=== PATIENT | female | born 1965 | race Caucasian/White ===

== ENCOUNTER 2020-11-22 12:11 | Inpatient (IN) ==
[2020-11-22] MEDS ORDERED: ONDANSETRON INJ 2 MG/ML 2 ML VIAL IV STA (12:32)
[2020-11-22] MEDS ORDERED: ALBUTEROL HFA 8 GM INHALER INH ONE (12:32)
[2020-11-22] MEDS ORDERED: KETOROLAC TROMETHAMINE 15 MG/ML VIAL IV STA (12:32)
[2020-11-22] MEDS ORDERED: ACETAMINOPHEN 1000 MG/100 ML IV IV STA (12:32)
--- NOTE | 2020-11-22 12:37 | Emergency Department Note ---
Impression & Plan Tachycardia, Vomiting, Diarrhea, Diffuse abdominal pain, Flu-like symptoms, Elevated liver enzymes ED Provider Note NAME: ELOISA GARRETT AGE: 55 SEX: F : 1965 ARRIVES VIA: Walk-In INFORMANT: [Patient] ED PROVIDER(S): [Francisco Hernandez MD] CHIEF COMPLAINT: Illness HISTORY OF PRESENT ILLNESS: The patient is a 55-year-old female who has had 2 days of flulike symptoms. She had a headache, stuffy nose, cough, sore throat, body aches, shortness of breath, vomiting, diarrhea, diffuse abdominal pain, issues with poor taste and smell. Patient states that she feels terrible. She has had chills and she thinks she likely had a fever. No Covid or influenza exposures. She states that she is otherwise fairly healthy. She has not been vaccinated for COVID-19. The patient states that she has vomited and had diarrhea so many times that she has lost count. She feels dehydrated. REVIEW OF SYSTEMS: See HPI for pertinent positives and negatives. A total of ten systems were reviewed and were otherwise negative. PMHx/PSHx: See Below SOCIAL HISTORY: See Below. PHYSICAL EXAM: GENERAL: Patient is in mild distress, moaning on the stretcher. HEENT: No acute trauma, normocephalic atraumatic, mucous membranes dry, moderate nasal congestion, no scleral icterus. NECK: No stridor, no adenopathy, no meningismus, trachea is midline. LUNGS: No respiratory distress, no obvious wheeze or crackle, equal breath sounds. HEART: Mildly tachycardic, regular rhythm, no murmurs. ABDOMEN: Soft, diffusely moderately tender, bowel sounds positive, no hernias, no peritonitis. EXTREMITIES: No cyanosis or edema, full range of motion of all the joints without pain or difficulty, no signs for acute trauma. NEUROLOGIC: Oriented x 3, no acute motor or sensory deficits, no focal weakness. SKIN: No rash, no jaundice, no diaphoresis. DIFFERENTIAL DIAGNOSIS: Sepsis, UTI, pneumonia, COVID-19, influenza, metabolic abnormality, electrolyte abnormalities, cardiac sources, cellulitis, UTI, bacteremia, intracerebral event, toxicologic etiology, neurologic event, as well as other pathologies. EMERGENCY DEPARTMENT COURSE/PROCEDURES: ECG: Indication was weakness and tachycardia. The ECG shows a sinus tachyca rdia with a rate of 103. The QTc is 476. There is no ST elevation, no PVCs. No old ECGs available for comparison. Continuous Cardiac Monitoring: An order was placed for continuous cardiac monitoring. The monitor shows a rate of 97 with normal sinus rhythm. Critical Care Note: I have personally spent 43 minutes of critical care time in the direct management of this patient. This includes bedside care, interpretation of diagnostic studies, and testing, discussion with consultants, patient, and family members, and other required patient management activities. This 43 minutes is in excess of all separately billable procedures. MEDICAL DECISION MAKING: There is no leukocytosis or concerning anemia. There is a normal platelet count. No coagulopathy. No kidney failure or significant electrolyte abnormality. Lactic acid level is not elevated making sepsis less likely. There is significant liver enzyme elevations with the AST at nearly 3000, the bilirubin was normal. ALT was elevated at just about 2000. Alk phos was slightly elevated. ECG showed a sinus tachycardia, no acute ischemia. Cardiac enzyme testing x1 is not consistent with acute cardiac injury. Covid testing and influenza testing returned negative. Chest film did not show pneumonia or CHF. There was no free air. Abdominal and pelvis CT did not show any bowel obstruction. No acute surgical pathology. The gallbladder was slightly distended without evidence for infection. Caldwell testing returned negative. Lipase returned negative, essentially ruling out pancreatitis. Hepatitis panel is currently pending. Alcohol level and Tylenol levels are pending--of note, the patient denies excessive alcohol use, she denies any excessive Tylenol use. On exam, the patient seemed uncomfortable. She was tachycardic. She seemed in some mild distress. She was not hypoxic. She was not febrile. Patient was aggressively managed, sepsis was a concern. She was initially placed in isolation but the isolation was then revoked once the Covid testing returned negative. She received IV saline, 1 L. She was given IV lactated Ringer's, 1 L. She received IV Toradol, IV Tylenol, albuterol via MDI, she was given IV cefepime as empiric antibiotic coverage. The patient's heart rate has improved. Subjectively, she feels minimally i mproved overall. The patient is in need of a hospital stay. She is dehydrated, she has significa nt elevation to her liver enzymes. She is still symptomatic despite treatment here in the ED. I spoke to the patient about her findings, I did speak with case management. The on-call hospitalist has been consulted. At this point, the cause for her presentation is unclear. Past Med/Surg History Medical History No significant medical problems Social History Smoking Status: Current every day smoker Feels Safe at Home: Yes Allergies Allergies Allergy/AdvReac Type Severity Reaction Status Date / Time Penicillins Allergy Intermediate HIVES Unverified 11/22/20 14:18 Home Meds Home Medications Medication Instructions Recorded Confirmed acetaminophen [Tylenol Extended 650 mg PO Q12H PRN 11/22/20 11/22/20 Release] albuterol sulfate 2 puff INHALATION UD PRN 11/22/20 11/22/20 aspirin [Aspirin Low Dose] 81 mg PO QAM 11/22/20 11/22/20 clonazepam 1 mg PO QAM 11/22/20 11/22/20 lisinopril 10 mg PO QAM 11/22/20 11/22/20 multivitamin 1 tab PO QAM 11/22/20 11/22/20 oxycodone-acetaminophen 1 tab PO TID PRN 11/22/20 11/22/20 oxymetazoline [Nasal [place] 2 spray INTRANASAL Q12H PRN 11/22/20 11/22/20 (oxymetazoline)] pantoprazole 40 mg PO QAM 11/22/20 11/22/20 Results & Data (ED) Vital Signs Vital Signs - 24 hr 11/22/20 12:15 11/22/20 13:16 11/22/20 13:17 Temperature 37.0 C Temperature Source Temporal Artery Scan Pulse Rate 123 H 94 H 107 H Pulse Rate from SpO2 Sensor 95 H 106 H Respiratory Rate 24 22 16 Respiratory Effort / Characteristics Blood Pressure 134/89 134/90 Blood Pressure Mean 104 104 Pulse Oximetry 95 97 97 Oxygen Delivery Method Room Air Sepsis Recent Fever Within 48 Hours No Sepsis New/Unexplained Change in Mental Status No Sepsis Action Taken by Nursing No Action Required 11/22/20 13:18 11/22/20 13:21 11/22/20 13:30 Temperature Temperature Source Pulse Rate 99 H Pulse Rate from SpO2 Sensor 99 H Respiratory Rate 18 19 Respiratory Effort / Characteristics Non-Labored Blood Pressure 115/83 Blood Pressure Mean 93 Pulse Oximetry 98 98 96 Oxygen Delivery Method Room Air Room Air Sepsis Recent Fever Within 48 Hours Sepsis New/Unexplained Change in Mental Status Sepsis Action Taken by Nursing 11/22/20 13:31 11/22/20 13:39 11/22/20 13:45 Temperature Temperature Source Pulse Rate 104 H 107 H Pulse Rate from SpO2 Sensor 106 H 103 H Respiratory Rate 22 18 15 Respiratory Effort / Characteristics Non-Labored Blood Pressure 121/77 Blood Pressure Mean 91 Pulse Oximetry 98 98 98 Oxygen Delivery Method Room Air Sepsis Recent Fever Within 48 Hours Sepsis New/Unexplained Change in Mental Status Sepsis Action Taken by Nursing 11/22/20 13:46 11/22/20 14:00 11/22/20 14:01 Temperature Temperature Source Pulse Rate 95 H 95 H 94 H Pulse Rate from SpO2 Sensor 95 H 96 H 93 H Respiratory Rate 18 18 18 Respiratory Effort / Characteristics Non-Labored Blood Pressure 117/75 Blood Pressure Mean 89 Pulse Oximetry 99 98 98 Oxygen Delivery Method Sepsis Recent Fever Within 48 Hours Sepsis New/Unexplained Change in Mental Status Sepsis Action Taken by Nursing 11/22/20 14:15 11/22/20 14:16 11/22/20 14:30 Temperature Temperature Source Pulse Rate 109 H 99 H 101 H Pulse Rate from SpO2 Sensor 110 H 100 H 99 H Respiratory Rate 18 18 18 Respiratory Effort / Characteristics Non-Labored Blood Pressure 119/86 116/89 Blood Pressure Mean 97 98 Pulse Oximetry 97 96 98 Oxygen Delivery Method Sepsis Recent Fever Within 48 Hours Sepsis New/Unexplained Change in Mental Status Sepsis Action Taken by Nursing 11/22/20 14:31 11/22/20 14:45 11/22/20 15:00 Temperature Temperature Source Pulse Rate 95 H 95 H 102 H Pulse Rate from SpO2 Sensor 97 H 97 H Respiratory Rate 17 20 21 Respiratory Effort / Characteristics Blood Pressure 118/89 121/94 Blood Pressure Mean 98 103 Pulse Oximetry 95 96 Oxygen Delivery Method Sepsis Recent Fever Within 48 Hours Sepsis New/Unexplained Change in Mental Status Sepsis Action Taken by Nursing 11/22/20 15:01 11/22/20 15:15 11/22/20 15:16 Temperature Temperature Source Pulse Rate 99 H 101 H 98 H Pulse Rate from SpO2 Sensor Respiratory Rate 16 19 20 Respiratory Effort / Characteristics Blood Pressure 119/83 Blood Pressure Mean 95 Pulse Oximetry Oxygen Delivery Method Sepsis Recent Fever Within 48 Hours Sepsis New/Unexplained Change in Mental Status Sepsis Action Taken by [facility] Medications Current Medication List: was personally reviewed by me Laboratory Data Attestation: I reviewed the patient's lab results. Result diagrams: 11/22/20 13:00 11/22/20 13:00 Lab Results 11/22/20 11/22/20 11/22/20 Range/Units 13:00 13:00 13:00 WBC 5.19 (4.8-10.8) K/uL RBC 4.44 (4.2-5.4) M/uL Hgb 14.8 (12.0-16.0) g/dL Hct 43.0 (37-47) % MCV 96.8 (80-100) fL MCH 33.3 (25-34) pg MCHC 34.4 (32-36) g/dL RDW Std Deviation 47.8 H (36.4-46.3) fL RDW Coeff of Isac 13.5 (11.5-14.5) % Plt Count 186 (130-400) K/uL MPV 10.1 (7.4-10.4) fL Immature Gran % (Auto) 0.2 % Neut % (Auto) 87.8 % Lymph % (Auto) 4.8 % [place]dwell % (Auto) 3.5 % Eos % (Auto) 3.3 % Baso % (Auto) 0.4 % Neut # (Auto) 4.56 (1.4-6.5) K/uL Lymph # (Auto) 0.25 L (1.2-3.4) K/uL Caldwell # (Auto) 0.18 (0.11-0.59) K/uL Eos # (Auto) 0.17 (0-0.5) K/uL Baso # (Auto) 0.02 (0-0.2) K/uL Immature Gran # (Auto) 0.01 (0.00-0.02) K/uL PT 10.7 (9.0-12.0) Seconds INR 1.1 (0.9-1.1) APTT 22.4 (21.0-31.0) Seconds PTT Ratio 0.9 Sodium 143 (136-145) mmol/L Potassium 3.5 (3.5-5.1) mmol/L Chloride 109 H (98-107) mmol/L Carbon Dioxide 27 (21-32) mmol/L Anion Gap 7.0 (3-11) BUN 13 (7-18) mg/dl Creatinine 0.92 (0.6-1.2) mg/dl Est Cr Clr Drug Dosing Not Reportable Est GFR ( Amer) 81.8 Est GFR (Non-Af Amer) 70.6 BUN/Creatinine Ratio 14.3 (10-20) Glucose 112 H (70-99) mg/dl Lactate (0.4-2.0) mmol/L Calcium 8.6 (8.5-10.1) mg/dl Magnesium 2.0 (1.8-2.4) mg/dl Total Bilirubin 0.8 (0.2-1) mg/dl AST 2782 H (15-37) U/L ALT 1893 H (12-78) U/L Alkaline Phosphatase 119 H (45-117) U/L Troponin I < 0.015 (0-0.045) ng/ml Total Protein 7.1 (6.4-8.2) gm/dl Albumin 3.8 (3.4-5.0) gm/dl Globulin 3.3 (2.5-4.0) gm/dl Albumin/Globulin Ratio 1.2 (0.9-2) Lipase (73-393) U/L Procalcitonin (0-0.5) ng/ml COVID-19 Eval Order Monoscreen (Negative) Influ A Molecular Assay (Negative) Influ B Molecular Assay (Negative) SARS-CoV-2, RNA, NAAT (NEGATIVE) 11/22/20 11/22/20 11/22/20 Range/Units 13:00 13:00 13:06 WBC (4.8-10.8) K/uL RBC (4.2-5.4) M/uL Hgb (12.0-16.0) g/dL Hct (37-47) % MCV (80-100) fL MCH (25-34) pg MCHC (32-36) g/dL RDW Std Deviation (36.4-46.3) fL RDW Coeff of Isac (11.5-14.5) % Plt Count (130-400) K/uL MPV (7.4-10.4) fL Immature Gran % (Auto) % Neut % (Auto) % Lymph % (Auto) % Caldwell % (Auto) % Eos % (Auto) % Baso % (Auto) % Neut # (Auto) (1.4-6.5) K/uL Lymph # (Auto) (1.2-3.4) K/uL [place]dwell # (Auto) (0.11-0.59) K/uL Eos # (Auto) (0-0.5) K/uL Baso # (Auto) (0-0.2) K/uL Immature Gran # (Auto) (0.00-0.02) K/uL PT (9.0-12.0) Seconds INR (0.9-1.1) APTT (21.0-31.0) Seconds PTT Ratio Sodium (136-145) mmol/L Potassium (3.5-5.1) mmol/L Chloride (98-107) mmol/L Carbon Dioxide (21-32) mmol/L Anion Gap (3-11) BUN (7-18) mg/dl Creatinine (0.6-1.2) mg/dl Est Cr Clr Drug Dosing Est GFR ( Amer) Est GFR (Non-Af Amer) BUN/Creatinine Ratio (10-20) Glucose (70-99) mg/dl Lactate 1.5 (0.4-2.0) mmol/L Calcium (8.5-10.1) mg/dl Magnesium (1.8-2.4) mg/dl Total Bilirubin (0.2-1) mg/dl AST (15-37) U/L ALT (12-78) U/L Alkaline Phosphatase (45-117) U/L Troponin I (0-0.045) ng/ml Total Protein (6.4-8.2) gm/dl Albumin (3.4-5.0) gm/dl Globulin (2.5-4.0) gm/dl Albumin/Globulin Ratio (0.9-2) Lipase (73-393) U/L Procalcitonin 0.43 (0-0.5) ng/ml COVID-19 Eval Order Monoscreen (Negative) Influ A Molecular Assay Negative (Negative) Influ B Molecular Assay Negative (Negative) SARS-CoV-2, RNA, NAAT (NEGATIVE) 11/22/20 11/22/20 11/22/20 Range/Units 13:18 13:18 14:42 WBC (4.8-10.8) K/uL RBC (4.2-5.4) M/uL Hgb (12.0-16.0) g/dL Hct (37-47) % MCV (80-100) fL MCH (25-34) pg MCHC (32-36) g/dL RDW Std Deviation (36.4-46.3) fL RDW Coeff of Isac (11.5-14.5) % Plt Count (130-400) K/uL MPV (7.4-10.4) fL Immature Gran % (Auto) % Neut % (Auto) % Lymph % (Auto) % [place]dwell % (Auto) % Eos % (Auto) % Baso % (Auto) % Neut # (Auto) (1.4-6.5) K/uL Lymph # (Auto) (1.2-3.4) K/uL [place]dwell # (Auto) (0.11-0.59) K/uL Eos # (Auto) (0-0.5) K/uL Baso # (Auto) (0-0.2) K/uL Immature Gran # (Auto) (0.00-0.02) K/uL PT (9.0-12.0) Seconds INR (0.9-1.1) APTT (21.0-31.0) Seconds PTT Ratio Sodium (136-145) mmol/L Potassium (3.5-5.1) mmol/L Chloride (98-107) mmol/L Carbon Dioxide (21-32) mmol/L Anion Gap (3-11) BUN (7-18) mg/dl Creatinine (0.6-1.2) mg/dl Est Cr Clr Drug Dosing Est GFR ( Amer) Est GFR (Non-Af Amer) BUN/Creatinine Ratio (10-20) Glucose (70-99) mg/dl Lactate (0.4-2.0) mmol/L Calcium (8.5-10.1) mg/dl Magnesium (1.8-2.4) mg/dl Total Bilirubin (0.2-1) mg/dl AST (15-37) U/L ALT (12-78) U/L Alkaline Phosphatase (45-117) U/L Troponin I (0-0.045) ng/ml Total Protein (6.4-8.2) gm/dl Albumin (3.4-5.0) gm/dl Globulin (2.5-4.0) gm/dl Albumin/Globulin Ratio (0.9-2) Lipase 199 (73-393) U/L Procalcitonin (0-0.5) ng/ml COVID-19 Eval [facility] (Negative) Influ A Molecular Assay (Negative) Influ B Molecular Assay (Negative) SARS-CoV-2, RNA, NAAT NEGATIVE (NEGATIVE) 11/22/20 Range/Units 14:42 WBC (4.8-10.8) K/uL RBC (4.2-5.4) M/uL Hgb (12.0-16.0) g/dL Hct (37-47) % MCV (80-100) fL MCH (25-34) pg MCHC (32-36) g/dL RDW Std Deviation (36.4-46.3) fL RDW Coeff of Isac (11.5-14.5) % Plt Count (130-400) K/uL MPV (7.4-10.4) fL Immature Gran % (Auto) % Neut % (Auto) % Lymph % (Auto) % [place]dwell % (Auto) % Eos % (Auto) % Baso % (Auto) % Neut # (Auto) (1.4-6.5) K/uL Lymph # (Auto) (1.2-3.4) K/uL [place]dwell # (Auto) (0.11-0.59) K/uL Eos # (Auto) (0-0.5) K/uL Baso # (Auto) (0-0.2) K/uL Immature Gran # (Auto) (0.00-0.02) K/uL PT (9.0-12.0) Seconds INR (0.9-1.1) APTT (21.0-31.0) Seconds PTT Ratio Sodium (136-145) mmol/L Potassium (3.5-5.1) mmol/L Chloride (98-107) mmol/L Carbon Dioxide (21-32) mmol/L Anion Gap (3-11) BUN (7-18) mg/dl Creatinine (0.6-1.2) mg/dl Est Cr Clr Drug Dosing Est GFR ( Amer) Est GFR (Non-Af Amer) BUN/Creatinine Ratio (10-20) Glucose (70-99) mg/dl Lactate (0.4-2.0) mmol/L Calcium (8.5-10.1) mg/dl Magnesium (1.8-2.4) mg/dl Total Bilirubin (0.2-1) mg/dl AST (15-37) U/L ALT (12-78) U/L Alkaline Phosphatase (45-117) U/L Troponin I (0-0.045) ng/ml Total Protein (6.4-8.2) gm/dl Albumin (3.4-5.0) gm/dl Globulin (2.5-4.0) gm/dl Albumin/Globulin Ratio (0.9-2) Lipase (73-393) U/L Procalcitonin (0-0.5) ng/ml COVID-19 Eval Order Monoscreen Negative (Negative) Influ A Molecular Assay (Negative) Influ B Molecular Assay (Negative) SARS-CoV-2, RNA, NAAT (NEGATIVE) Administered Medications Discontinued Medications Acetaminophen (Acetaminophen 1000 Mg/100 Ml Iv) 1,000 mg IV NOW STA Stop: 11/22/20 12:33 Last Admin: 11/22/20 13:21 Dose: 1,000 mg Documented by: [id number] Albuterol (Albuterol Hfa 8 Gm Inhaler) 3 puffs INH NOW ONE Stop: 11/22/20 12:33 Last Admin: 11/22/20 13:51 Dose: 3 puffs Documented by: [id number] Sodium Chloride (Nss 1000ml) 1,000 mls @ 999 mls/hr IV .Q1H1M DAVID Stop: 11/22/20 13:45 Last Infusion: 11/22/20 14:44 Dose: 0 mls/hr Documented by: [id number] Admin: 11/22/20 13:21 Dose: 999 mls/hr Documented by: [id number] Lactated Ringer's (Lr) 1,000 mls @ 999 mls/hr IV .Q1H1M STA Stop: 11/22/20 15:25 Last Admin: 11/22/20 15:06 Dose: 999 mls/hr Documented by: [id number] Ioversol (Ioversol 100ml) 94 ml IV ONCE ONE Stop: 11/22/20 14:56 Last Admin: 11/22/20 14:55 Dose: 94 ml Documented by: [id number] Ketorolac Tromethamine (Ketorolac Tromethamine 15 Mg/Ml Vial) 15 mg IV NOW STA Stop: 11/22/20 12:33 Last Admin: 11/22/20 13:21 Dose: 15 mg Documented by: [id number] Ondansetron HCl (Ondansetron Inj 2 Mg/Ml 2 Ml Vial) 4 mg IV NOW STA Stop: 11/22/20 12:33 Last Admin: 11/22/20 13:21 Dose: 4 mg Documented by: [id number] Imaging Data Radiologist's Impression: XR chest 1V portable CLINICAL HISTORY: SEPSIS COMPARISON STUDY: No previous studies for comparison. FINDINGS: Lung volumes are normal. Lungs are clear. There is no pneumothorax or pleural effusion. Cardiac size is normal. Mediastinal contours are normal. There is no evidence for pulmonary edema. IMPRESSION: No acute cardiopulmonary findings. CT OF THE ABDOMEN AND PELVIS WITH CONTRAST CLINICAL HISTORY: Elevated liver function tests, vomiting, pain COMPARISON STUDY: None. TECHNIQUE: Following IV administration of 94 mL of Optiray-320, axial images of the abdomen and pelvis were obtained from the lung bases to the proximal femurs. Images were reviewed in the axial, sagittal, and coronal planes. IV contrast was administered without complication. Automated exposure control was utilized for the study. A dose lowering technique was utilized adhering to the principles of ALARA. CT DOSE: 283.10 mGy.cm FINDINGS: Lung bases are unremarkable. Linear and groundglass opacities reflect atelectasis. No pneumatosis, free air or portal venous gas is present. Bord buck dilatation of the common bile duct is noted, measuring 7 mm in caliber. There is no intrahepatic biliary ductal dilatation. No hepatic lesions are identified. The gallbladder is mildly distended. However, there is no pericholecystic infiltration. The spleen, adrenal glands, right kidney and p ancreas are normal. There is no pancreatic ductal dilatation. No peripancreatic infiltration is present. An 8 mm hypodense lesion within the lower pole of the left kidney is too small to characterize but favors a cyst. There is no hydronephrosis. The appendix is surgically absent. Colon is mildly fluid-filled. There is no evidence for a bowel obstruction. Caliber and wall thickness of small and large bowel are normal. Apparent wall thickening within the gastric body is likely due to underdistention. There is no acute fracture or suspicious lesion within the visualized skeletal structures. There is no lymphadenopathy. No fluid collection is present. There is no ascites. IMPRESSION: 1. Borderline dilatation of the common bile duct. No intrahepatic biliary ductal dilatation. Normal liver morphology. No hepatic lesions. 2. Mild gallbladder distention without adjacent infiltration. No findings to strongly suggest acute cholecystitis. 3. Apparent gastric fold thickening. This is likely due to underdistention. Gastritis could appear similar. 4. No bowel obstruction. No bowel wall thickening. Discharge Plan Visit Data Chief Complaint: Illness Stated Complaint: VOMITING, BACK PAIN, CAN'T HARDLY WALK ED Provider: Francisco Hernandez Discharge Problem: Tachycardia, Vomiting, Diarrhea, Diffuse abdominal pain, Flu-like symptoms, Elevated liver enzymes Patient Disposition: Admitted As Inpatient Condition: Fair Forms Stand Alone Forms: [facility] Prescriptions Prescriptions: No Action multivitamin Tablet 1 tab PO QAM RF: 0 clonazepam 1 mg tablet 1 mg PO QAM RF: 0 aspirin [Aspirin Low Dose] 81 mg Tablet,Delayed Release (Dr/Ec) 81 mg PO QAM RF: 0 acetaminophen [Tylenol Extended Release] 650 mg Tablet Extended Release 650 mg PO Q12H PRN (Reason: Pain) RF: 0 oxycodone-acetaminophen 5-325 mg tablet 1 tab PO TID PRN (Reason: Pain) RF: 0 pantoprazole 40 mg tablet,delayed release (DR/EC) 40 mg PO QAM RF: 0 lisinopril 10 mg tablet 10 mg PO QAM RF: 0 albuterol sulfate 90 mcg/actuation HFA aerosol inhaler 2 puff INHALATION UD PRN (Reason: Shortness Of Breath Or Wheezing) RF: 0 oxymetazoline [Nasal [place] (oxymetazoline)] 0.05 % [place],Non-Aerosol 2 spray INTRANASAL Q12H PRN (Reason: Allergy Symptoms) RF: 0 Referrals Referrals: PCP,NO [Primary Care Provider] - Discharge Problem: Vomiting Qualifiers: Vomiting type: unspecified Vomiting Intractability: non-intractable Nausea presence: with nausea Qualified Code(s): R11.2 - Nausea with vomiting, unspecif ied Diarrhea Qualifiers: Diarrhea type: unspecified type Qualified Code(s): R19.7 - Diarrhea, unspecified
[2020-11-22] MEDS ORDERED: SODIUM CHLORIDE 0.9% 1000ML 1,000 ML IV SCH (12:45)
--- NOTE | 2020-11-22 13:03 | XRay Report ---
XR chest 1V portable CLINICAL HISTORY: SEPSIS COMPARISON STUDY: No previous studies for comparison. FINDINGS: Lung volumes are normal. Lungs are clear. There is no pneumothorax or pleural effusion. Car diac size is normal. Mediastinal contours are normal. There is no evidence for pulmonary edema. IMPRESSION: No acute cardiopulmonary findings. ACT 112: Negative or not required by law. Electronically signed by: Nate Ford M.D. 11/22/2020 1:02 PM
[2020-11-22 13:25] LABS: Basophils # (auto) 0.02 K/uL (0-0.2); Basophils % (auto) 0.4 %; Eosinophils # (auto) 0.17 K/uL (0-0.5); Eosinophils % (auto) 3.3 %; Hemoglobin 14.8 g/dL (12.0-16.0); Immature Granulocytes # (auto) 0.01 K/uL (0.00-0.02); Immature Granulocytes % (auto) 0.2 %; Lymphocytes # (auto) 0.25 K/uL (1.2-3.4); Lymphocytes % (auto) 4.8 %; Mean Corpuscular Hemoglobin 33.3 pg (25-34); Mean Corpuscular Hgb Conc 34.4 g/dL (32-36); Mean Corpuscular Volume 96.8 fL (80-100); Mean Platelet Volume 10.1 fL (7.4-10.4); Monocytes # (auto) 0.18 K/uL (0.11-0.59); Monocytes % (auto) 3.5 %; Neutrophils # (auto) 4.56 K/uL (1.4-6.5); Neutrophils % (auto) 87.8 %; Platelet Count 186 K/uL (130-400); RDW Coefficient of Variation 13.5 % (11.5-14.5); RDW Standard Deviation 47.8 fL (36.4-46.3); Red Blood Count 4.44 M/uL (4.2-5.4); White Blood Count 5.19 K/uL (4.8-10.8)
--- NOTE | 2020-11-22 13:39 | Electrocardiogram Report ---
Test Reason : Blood Pressure : / mmHG Vent. Rate : 103 BPM Atrial Rate : 103 BPM P-R Int : 148 ms QRS Dur : 078 ms QT Int : 364 ms P-R-T Axes : 064 018 046 degrees QTc Int : 476 ms Sinus tachycardia Otherwise normal ECG No previous ECGs available Confirmed by Glenn Farnsworth ([id number]) on 11/22/2020 1:38:42 PM Referred By: Confirmed By:Glenn Farnsworth
[2020-11-22 13:42] LABS: INR 1.1 (0.9-1.1); Partial Thromboplastin Ratio 0.9; Partial Thromboplastin Time 22.4 Seconds (21.0-31.0); Prothrombin Time 10.7 Seconds (9.0-12.0)
[2020-11-22 13:45] LABS: Albumin Level 3.8 gm/dl (3.4-5.0); BUN Creatinine Ratio 14.3 (10-20); Blood Urea Nitrogen 13 mg/dl (7-18); Calcium 8.6 mg/dl (8.5-10.1); Carbon Dioxide 27 mmol/L (21-32); Chloride 109 mmol/L (98-107); Est GFR (African American) 81.8; Est GFR (Non-African American) 70.6; Glucose 112 mg/dl (70-99); Potassium 3.5 mmol/L (3.5-5.1); Sodium 143 mmol/L (136-145)
[2020-11-22 14:00] LABS: Influenza A virus by PCR Negative (Negative); Influenza B virus by PCR Negative (Negative)
[2020-11-22 14:08] LABS: Alanine Aminotransferase 1893 U/L (12-78); Albumin Globulin Ratio 1.2 (0.9-2); Alkaline Phosphatase 119 U/L (45-117); Aspartate Aminotransferase 2782 U/L (15-37); Bilirubin,Total 0.8 mg/dl (0.2-1); Globulin 3.3 gm/dl (2.5-4.0); Total Protein 7.1 gm/dl (6.4-8.2); Troponin I < 0.015 ng/ml (0-0.045)
[2020-11-22] MEDS ORDERED: CEFEPIME 2,000 MG/20 ML VIAL IV STA (14:24)
[2020-11-22] MEDS ORDERED: LACTATED RINGER'S 1,000 ML IV STA (14:25)
[2020-11-22] MEDS ORDERED: OPTIRAY 320 100ml IV ONE (14:55)
--- NOTE | 2020-11-22 15:09 | CT Scan Report ---
CT OF THE ABDOMEN AND PELVIS WITH CONTRAST CLINICAL HISTORY: Elevated liver function tests, vomiting, pain COMPARISON STUDY: None. TECHNIQUE: Following IV administration of 94 mL of Optiray-320, axial images of the abdomen and pelvi s were obtained from the lung bases to the proximal femurs. Images were reviewed in the axial, sagitt al, and coronal planes. IV contrast was administered without complication. Automated exposure contro l was utilized for the study. A dose lowering technique was utilized adhering to the principles of A ULI. CT DOSE: 283.10 mGy.cm FINDINGS: Lung bases are unremarkable. Linear and groundglass opacities reflect atelectasis. No pneum atosis, free air or portal venous gas is present. Borderline dilatation of the common bile duct is no love, measuring 7 mm in caliber. There is no intrahepatic biliary ductal dilatation. No hepatic lesion s are identified. The gallbladder is mildly distended. However, there is no pericholecystic infiltrat ion. The spleen, adrenal glands, right kidney and pancreas are normal. There is no pancreatic ductal dilatation. No peripancreatic infiltration is present. An 8 mm hypodense lesion within the lower pole of the left kidney is too small to characterize but favors a cyst. There is no hydronephrosis. The a ppendix is surgically absent. Colon is mildly fluid-filled. There is no evidence for a bowel obstruct ion. Caliber and wall thickness of small and large bowel are normal. Apparent wall thickening within the gastric body is likely due to underdistention. There is no acute fracture or suspicious lesion wi thin the visualized skeletal structures. There is no lymphadenopathy. No fluid collection is present. There is no ascites. IMPRESSION: 1. Borderline dilatation of the common bile duct. No intrahepatic biliary ductal dilatation. Normal l iver morphology. No hepatic lesions. 2. Mild gallbladder distention without adjacent infiltration. No findings to strongly suggest acute c holecystitis. 3. Apparent gastric fold thickening. This is likely due to underdistention. Gastritis could appear si milar. 4. No bowel obstruction. No bowel wall thickening. ACT 112: Negative or not required by law. Electronically signed by: Nate Ford M.D. 11/22/2020 3:07 PM
[2020-11-22 15:57] LABS: Hepatitis B Surf Ag Rflx Conf Neg (Neg)
[2020-11-22 16:26] LABS: Hepatitis C IgG 13Yrs+Old_Rflx Neg (Neg)
[2020-11-22] MEDS ORDERED: CIPROFLOXACIN / D5W 400 MG/200 ML BAG IV SCH (16:30)
--- NOTE | 2020-11-22 16:31 | History & Physical Report ---
Date of Service November 22, 2020 Assessment & Plan (1) Acute hepatitis: (2) Abdominal pain, vomiting, and diarrhea: (3) Flu-like symptoms: (4) Tachycardia: This is a 55-year-old female who has significant past medical history of COPD, tobacco abuse, HTN, ESTEFANI, GERD, chronic back pain with history of laminectomy who presents to ED secondary to flulike symptoms x2 days. Pt does not meet SIRS/Sepsis criteria per current CMS Guidelines ddx: COVID infection, viral hepatitis, autoimmune hepatitis, choledocholithiasis, drug tox, norovirus among others pt denies ETOH or significant APAP usage or OTC Herbal supplements admit to med/surg consult GI clear liquid diet NSS + 20meq KCL 80cc/hr supportive care RUQ US TSH/t4, amari, anti-sm muscle ab, ceruloplasmin, ferritin, ck, ggt stool studies/stool for cdiff IV Ceftriaxone/Flagyl for now until infectious etiology ruled out blood cultures pending hold APAP for now (5) COPD (chronic obstructive pulmonary disease): no acute exac continue prn albuterol (6) HTN (hypertension): on lisinopril as outpt hold for now resume when able (7) GERD (gastroesophageal reflux disease): IV PPI for now until able to tolerate PO (8) Tobacco abuse: encourage smoking cessation declines nicotine patch (9) DVT prophylaxis: SCD/TEDS for now DISPO:med/surg, continue covid isolation given above sx despite negative test PCP: Lynn FULL CODE Pt was seen and examined in collaboration with Dr. Recinos, please see addendum History of Present Illness Chief Complaint: Flu like sx x 2 days. Primary Care Provider: Dr. Venkat Bailey This is a 55-year-old female who has significant past medical history of COPD, tobacco abuse, HTN, ESTEFANI, GERD, chronic back pain with history of laminectomy who presents to ED secondary to flulike symptoms x2 days. She states starting yesterday she developed headache, sinus congestion and pressure, dry cough, nausea, vomiting, diarrhea and abdominal pain. She lives at home alone and no known sick contacts. No known Covid exposure. She admits to having approximately 7-8 bowel movements today, "they are just like water." She overa ll feels ill. Pain in abdomen is generalized, but worse on left lower quadrant. It is constant, described as a dull ache, and made worse with movement. She denies any hematemesis, melena or hematochezia. She further denies any documented fever, lightheadedness, dizziness, syncope, chest pain, shortness of breath at rest, hemoptysis, dysuria, increased urgency or frequency with urination. She does admit to being overall short of breath but attributes that her COPD and does not feel like this is unchanged. She continues to use tobacco but over the past couple days has been unable to to ill feeling. In ED patient was initially tachycardic. This improved after 1 L of IV fluid. She was then started on additional liter. Lab work notable for an acute hepatitis with elevation of AST to 2782 and ALT 1893, alkaline phosphatase 119, total bili 1.8. Her lipase was unremarkable as well as CBC. Her procalcitonin minimally elevated at 0.43. Initially she received 1 g APAP, IV Toradol and 2 g IV cefepime. Allergies Allergy/AdvReac Type Severity Reaction Status Date / Time Penicillins Allergy Intermediate HIVES Unverified 11/22/20 14:18 Iodinated Contrast Media Allergy Unknown Verified 11/22/20 17:05 Home Medications Medication Instructions Recorded Confirmed Type acetaminophen [Tylenol Extended 650 mg PO Q12H PRN 11/22/20 11/22/20 History Release] albuterol sulfate 2 puff INHALATION UD PRN 11/22/20 11/22/20 History aspirin [Aspirin Low Dose] 81 mg PO QAM 11/22/20 11/22/20 History clonazepam 1 mg PO QAM 11/22/20 11/22/20 History lisinopril 10 mg PO QAM 11/22/20 11/22/20 History multivitamin 1 tab PO QAM 11/22/20 11/22/20 History oxycodone-acetaminophen 1 tab PO TID PRN 11/22/20 11/22/20 History oxymetazoline [Nasal Elfrida 2 spray INTRANASAL Q12H PRN 11/22/20 11/22/20 History (oxymetazoline)] pantoprazole 40 mg PO QAM 11/22/20 11/22/20 History Past Med/Surg History Medical History (Updated 11/22/20 @ 16:45 by Adelina Pichardo PA-C) Chronic back pain COPD (chronic obstructive pulmonary disease) ESTEFANI (generalized anxiety disorder) GERD (gastroesophageal reflux disease) History of hysteroscopy HTN (hypertension) Tobacco abuse Surgical History (Updated 11/22/20 @ 16:34 by Adelina Pichardo PA-C) History of appendectomy History of esophagogastroduodenoscopy (EGD) History of laminectomy L5-S1 Family History Father Coronary heart disease Hypertension Mother Stroke Social History Smoking Status: Current every day smoker Cigarettes Per Day: 10; Hx Alcohol Use: Yes Alcohol type: wine Alcohol Intake Frequency: 2-4 x/Month Hx Substance Use: No Preferred Language: Serbian Communication Ability: Effective Investment Professional Required: No Beliefs That Will Affect Care: None Current Living Situation: Alone Other Information That Helps Us Care for You: No Feels Safe at Home: Yes Safety Concerns: Feels Safe At This Time Review of Systems Review of Systems: All systems reviewed & are unremarkable except as noted in HPI & below Physical Exam Physical Exam: Constitutional: WD/WN, acutely ill appearing, vitals as above,lying in bed, answers questions appropriately, conversing easily Head: Normocephalic, Atraumatic Eyes: PERRL, conjunctivae normal, anicteric sclerae ENMT: external ear and nose normal, oropharynx normal dry membranes Neck: trachea midline, no thyromegaly normal visual inspection Respiratory: normal respiratory effort, decreased breath sounds throughout, lungs clear to auscultation, no wheeze, rales, rhonchi. Normal insp/exp effort, no accessory muscle use Cardiovascular: RRR, no murmur, no edema Vessels: no JVD or carotid bruit Chest: normal inspection of chest Abdomen: normal bowel sounds, soft, generally tender throughout, no rebound, guarding, rigidity, no hepatosplenomegaly appreciated Musculoskeletal: no cyanosis or clubbing, extremities motor strength 5/5 Skin: no rashes, warm and dry normal turgor Neurologic: PERRL, EOMI, accommodation nl, no face palsy, no dysarthria CN's II-XI intact bilaterally and moves all extremities Psychiatric: A+Ox3, euthymic affect : deferred Results & Data Results & Data ([facility]) Vital Signs (Past 12 Hours) Vital Signs Temp Pulse Resp BP Pulse Ox 11/22/20 15:46 97 H 17 11/22/20 15:45 97 H 14 130/90 11/22/20 15:31 91 H 20 11/22/20 15:30 98 H 17 121/93 98 11/22/20 15:16 98 H 20 11/22/20 15:15 101 H 19 119/83 11/22/20 15:01 99 H 16 11/22/20 15:00 102 H 21 121/94 11/22/20 14:45 95 H 20 118/89 96 11/22/20 14:31 95 H 17 95 11/22/20 14:30 101 H 18 116/89 98 11/22/20 14:16 99 H 18 96 11/22/20 14:15 109 H 18 119/86 97 11/22/20 14:01 94 H 18 98 11/22/20 14:00 95 H 18 117/75 98 11/22/20 13:46 95 H 18 99 11/22/20 13:45 107 H 15 121/77 98 11/22/20 13:39 18 98 11/22/20 13:31 104 H 22 98 11/22/20 13:30 99 H 19 115/83 96 11/22/20 13:21 18 98 11/22/20 13:18 98 11/22/20 13:17 107 H 16 97 11/22/20 13:16 94 H 22 134/90 97 11/22/20 12:15 37.0 C 123 H 24 134/[address] a/p: IMPRESSION: 1. Borderline dilatation of the common bile duct. No intrahepatic biliary ductal dilatation. Normal liver morphology. No hepatic lesions. 2. Mild gallbladder distention without adjacent infiltration. No findings to strongly suggest acute cholecystitis. 3. Apparent gastric fold thickening. This is likely due to underdistention. Gastritis could appear similar. 4. No bowel obstruction. No bowel wall thickening. CXR: IMPRESSION: No acute cardiopulmonary findings. Medications Administered Short CBC 11/22/20 Range/Units 13:00 WBC 5.19 (4.8-10.8) K/uL Hgb 14.8 (12.0-16.0) g/dL Hct 43.0 (37-47) % Plt Count 186 (130-400) K/uL BMP 11/22/20 13:00 Sodium 143 Potassium 3.5 Chloride 109 H Carbon Dioxide 27 BUN 13 Creatinine 0.92 Glucose 112 H Calcium 8.6 Cardiac Enzymes 11/22/20 Range/Units 13:00 Troponin I < 0.015 (0-0.045) ng/ml Liver Function 11/22/20 Range/Units 13:00 Total Bilirubin 0.8 (0.2-1) mg/dl AST 2782 H (15-37) U/L ALT 1893 H (12-78) U/L Alkaline Phosphatase 119 H (45-117) U/L Albumin 3.8 (3.4-5.0) gm/dl ECG Rate (beats per minute): 103 Rhythm: sinus tachycardia COVID-19 Results Results COVID-19 Adm Lab Results: RBC 4.44 M/uL (4.2-5.4) 11/22/20 WBC 5.19 K/uL (4.8-10.8) 11/22/20 Hgb 14.8 g/dL (12.0-16.0) 11/22/20 Hct 43.0 % (37-47) 11/22/20 Plt Count 186 K/uL (130-400) 11/22/20 Neutrophils (%) (Auto) 87.8 % 11/22/20 Lymphocytes (%) (Auto) 4.8 % 11/22/20 Monocytes # (Auto) 0.18 K/uL (0.11-0.59) 11/22/20 Eosinophils # (Auto) 0.17 K/uL (0-0.5) 11/22/20 Immature Granulocyte % (Auto) 0.2 % 11/22/20 Neutrophils # (Auto) 4.56 K/uL (1.4-6.5) 11/22/20 Lymphocytes # (Auto) 0.25 K/uL (1.2-3.4) L 11/22/20 Monocytes # (Auto) 0.18 K/uL (0.11-0.59) 11/22/20 Eosinophils # (Auto) 0.17 K/uL (0-0.5) 11/22/20 Basophils # (Auto) 0.02 K/uL (0-0.2) 11/22/20 Immature Granulocyte # (Auto) 0.01 K/uL (0.00-0.02) 11/22/20 Na 143 mmol/L (136-145) 11/22/20 K 3.5 mmol/L (3.5-5.1) 11/22/20 Cl 109 mmol/L (98-107) H 11/22/20 CO2 27 mmol/L (21-32) 11/22/20 Anion Gap 7.0 (3-11) 11/22/20 BUN 13 mg/dl (7-18) 11/22/20 Creatinine 0.92 mg/dl (0.6-1.2) 11/22/20 BUN/Creatinine Ratio 14.3 (10-20) 11/22/20 Glucose Level 112 mg/dl (70-99) H 11/22/20 Ca 8.6 mg/dl (8.5-10.1) 11/22/20 Total Bilirubin 0.8 mg/dl (0.2-1) 11/22/20 AST/SGOT 2782 U/L (15-37) H 11/22/20 ALT/SGPT 1893 U/L (12-78) H 11/22/20 Alkaline Phosphatase 119 U/L (45-117) H 11/22/20 Total Protein 7.1 gm/dl (6.4-8.2) 11/22/20 Albumin 3.8 gm/dl (3.4-5.0) 11/22/20 Globulin 3.3 gm/dl (2.5-4.0) 11/22/20 Albumin/Globulin Ratio 1.2 (0.9-2) 11/22/20 GGT Pending 11/22/20 Total CK 91 U/L (26-192) 11/22/20 Troponin I < 0.015 ng/ml (0-0.045) 11/22/20 Procalcitonin 0.43 ng/ml (0-0.5) 11/22/20 Ferritin 1777.7 ng/ml (8-388) H 11/22/20 PTT 22.4 Seconds (21.0-31.0) 11/22/20 INR 1.1 (0.9-1.1) 11/22/20 COVID-19 PCR NEGATIVE (Negative) 11/22/20 Influenza Virus Type A (PCR) Negative (Neg) 11/22/20 Influenza Virus Type B (PCR) Negative (Neg) 11/22/20 SARS-CoV-2, RNA, NAAT NEGATIVE (NEGATIVE) 11/22/20 Chest X-Ray 11/22/20 Code Status & VTE Plan Code Status Full Code VTE Prophylaxis Plan VTE Prophylaxis will be ordered: Yes Supervising Physician Co-Signing Physician Notes Patient is a 55-year-old female with history of COPD, tobacco use disorder, hypertension, GERD and other medical problems presents with history of flulike symptoms--sinus congestion, cough, nausea, headache, vomiting, abdominal pain and diarrhea since 2 days duration. Patient denies any chest pain, shortness of breath, dizziness, sick contact, recent travel. Please review HPI for complete details of presentation. She admits to taking Tylenol and is also on Percocet for chronic pain. She admits to not drinking 1 bottle of beer 2 days ago. Denies any blood in the stool or in the vomitus. CT abdomen suggestive of mild gallbladder distention without adjacent infiltration and no findings to strongly suggest acute cholecystitis. Findings also suggestive of gastritis. Chest x- ray showed no acute cardiopulmonary findings. On exam patient is moderately built and nourished, no apparent distress, normocephalic atraumatic, lungs--decreased breath sounds, clear to auscultation, S1-S2, no murmur, abdomen soft, generalized tenderness present, no guarding or rigidity, normal bowel sounds, no pedal edema, alert, awake, oriented, grossly no focal neurological deficits. Elevated LFTs noted on labs. Normal lipase level normal procalcitonin levels. Patient is admitted for management of flulike symptoms, nausea, vomiting, abdominal pain, diarrhea. DD: Gastroenteritis, acute hepatitis, acute bronchitis, acute cholecystitis on the left likely. Agree with checking toxicology screen, hepatitis panel and other work-up for autoimmune hepatitis. Will consult GI for further help. IV fluids, clear liquid diet, pain control. Agree with starting Rocephin, Flagyl to cover possible URI, GI source of infection. COVID screen is negative. Will check right upper quadrant ultrasound. Continue PPI. I personally reviewed the record. Patient is interviewed and examined at bedside. Patient's care is coordinated with Adelina Pataky PA-C. Please refer to the documentation above for details of patient's presentation and for discussion of other issues.
[2020-11-22 16:46] LABS: Influenza A virus by PCR Negative (Neg); Influenza B virus by PCR Negative (Neg); RSV by PCR Negative (Neg); SARS CoV2 RNA(COVID-19) InHosp NEGATIVE (Negative)
[2020-11-22] MEDS ORDERED: ALBUTEROL 0.083% NEBU SOLN 3 ML VIAL NEB PRN (16:49)
[2020-11-22 17:11] LABS: Ferritin 1777.7 ng/ml (8-388); Thyroid Stimulating Hormone 0.168 uIu/ml (0.300-4.500)
[2020-11-22] MEDS: PANTOprazole 40 MG in SYRINGE 0 ML IV SCH (17:17)
[2020-11-22] MEDS: NSS + 20MEQ KCL 20 MEQ/1,000 ML BAG IV SCH (17:18)
[2020-11-22] MEDS: metroNIDAZOLE 500 MG/100 ML BAG IV SCH (17:21)
[2020-11-22 17:23] LABS: T4 Free Thyroxine 0.97 ng/dl (0.8-1.6)
[2020-11-22] MEDS: KETOROLAC TROMETHAMINE 15 MG/ML VIAL IV PRN (17:30)
[2020-11-22] MEDS: traMADol HCL 50 MG TABLET PO PRN (19:41)
[2020-11-22 20:39] LABS: Appearance Urine Clear (Clear); Bacteria Urine Automated Negative (Negative); Bilirubin Urine Negative (Negative); Blood Urine Trace (Negative); Color Urine Dark Yellow; Epithelial Cell Urine Auto >30 /lpf (0-5); Glucose Urine UA Negative (Negative); Ketones Urine Trace (Negative); Leukocyte Esterase Urine Negative (Negative); Nitrite Urine Negative (Negative); Protein Urine Trace (Negative); RBC Urine Automated 0-4 /hpf (0-4); Specific Gravity Urine > 1.045 (1.000-1.030); Urobilinogen Urine Negative (Negative)
[2020-11-22 20:55] LABS: Cast Urine Automated 0 /lpf (0-5)
[2020-11-22 21:08] LABS: Amphetamines+Metham, Urine Neg (Neg); Barbiturates, Urine Neg (Neg); Benzodiazepine, Urine Neg (Neg); Cocaine, Urine Neg (Neg); MDMA (Ecstacy), Urine Neg (Neg); Methadone, Urine Neg (Neg); Opiate, Urine Neg (Neg); Phencyclidine, Urine Neg (Neg)
[2020-11-22] MEDS ORDERED: cefTRIAXone SODIUM 2,000 MG in DEXTROSE 5% 50 ML IV SCH (22:00)
[2020-11-23] MEDS: metroNIDAZOLE 500 MG/100 ML BAG IV SCH ×2 (00:48→08:42)
[2020-11-23] MEDS: KETOROLAC TROMETHAMINE 15 MG/ML VIAL IV PRN (05:44)
[2020-11-23] MEDS: NSS + 20MEQ KCL 20 MEQ/1,000 ML BAG IV SCH (05:44)
--- NOTE | 2020-11-23 07:10 | Ultrasound Report ---
BILIARY ULTRASOUND CLINICAL HISTORY: acute hepatitis COMPARISON STUDY: November 22, 2020 FINDINGS: The pancreas appears sonographically normal. The liver appears sonographically normal. The gallbladder appears sonographically normal. There is no ductal dilatation. The common bile duct measu res 5 mm. At the level of the pancreatic head, common bile duct measures 6 mm. There is no right-side d hydronephrosis. IMPRESSION: Common bile duct the upper limits of normal in diameter of the pancreatic head. Otherwis e unremarkable biliary ultrasound. ACT 112: Negative or not required by law. Electronically signed by: Maykel Moore M.D. 11/23/2020 7:08 AM
[2020-11-23 07:32] LABS: Basophils # (auto) 0.02 K/uL (0-0.2); Basophils % (auto) 0.6 %; Eosinophils # (auto) 0.35 K/uL (0-0.5); Eosinophils % (auto) 10.3 %; Hematocrit (blood only) 36.5 % (37-47); Hemoglobin 12.2 g/dL (12.0-16.0); Lymphocytes # (auto) 0.92 K/uL (1.2-3.4); Lymphocytes % (auto) 27.1 %; Mean Corpuscular Hemoglobin 32.4 pg (25-34); Mean Corpuscular Hgb Conc 33.4 g/dL (32-36); Mean Corpuscular Volume 96.8 fL (80-100); Mean Platelet Volume 9.7 fL (7.4-10.4); Monocytes # (auto) 0.24 K/uL (0.11-0.59); Monocytes % (auto) 7.1 %; Neutrophils # (auto) 1.86 K/uL (1.4-6.5); Neutrophils % (auto) 54.9 %; Platelet Count 139 K/uL (130-400); RDW Coefficient of Variation 13.3 % (11.5-14.5); RDW Standard Deviation 46.9 fL (36.4-46.3); Red Blood Count 3.77 M/uL (4.2-5.4); White Blood Count 3.39 K/uL (4.8-10.8)
[2020-11-23 07:47] LABS: INR 1.1 (0.9-1.1); Prothrombin Time 11.5 Seconds (9.0-12.0)
[2020-11-23 07:58] LABS: Albumin Level 2.9 gm/dl (3.4-5.0); BUN Creatinine Ratio 7.5 (10-20); Calcium 8.3 mg/dl (8.5-10.1); Creatinine Clr Calc Pharmacy 90.4 ml/min; Est GFR (African American) 117.3; Est GFR (Non-African American) 101.2; Magnesium 1.7 mg/dl (1.8-2.4); Potassium 3.3 mmol/L (3.5-5.1)
[2020-11-23 08:02] LABS: Bilirubin,Total 0.4 mg/dl (0.2-1); Globulin 2.8 gm/dl (2.5-4.0); Total Protein 5.7 gm/dl (6.4-8.2)
[2020-11-23] MEDS: traMADol HCL 50 MG TABLET PO PRN (08:42)
[2020-11-23] MEDS ORDERED: POTASSIUM CHLORIDE CRTAB 20 MEQ TABCR PO ONE (10:00)
[2020-11-23] MEDS ORDERED: MAGNESIUM SULFATE / D5W 1 GM/100 ML BAG IV ONE (10:00)
--- NOTE | 2020-11-23 10:21 | Gastrointestinal Consultation ---
Date of Consultation November 23, 2020 Assessment & Plan (1) Acute hepatitis: 55 year old female admitted w/ flu like symptoms, nonbloody diarrhea noted to have significantly elevated transaminases w/ normal Tbili. ABD US reviewed, no stones but ULN CBD. AST/ALT downtrending - Full infectious panel sent to include acute hep, cmv, ebv, hsv - Check KAROL, AMA, ASMA - Arrange MRCP - Avoid hepatotoxins - Will follow Supervising Physician Co-Signing Physician Notes I performed a history and physical examination of the patient today, including specifically on physical exam - soft abdomen. I have discussed the patient's management with the advanced practitioner. Please refer to the nurse practitioner's note for the documented findings and plan of care. MRCP to r/o biliary etiology. Viral Hepatitis panel. Stool work up. History of Present Illness Reason for Consultation: hepatitis Requesting Physician: Jorje Attending Physician: Wang Recinos MD History of Present Illness 55-year-old female w/ history of of COPD, HTN, ESTEFANI, GERD, chronic back pain with history of laminectomy who presents to ED secondary to flulike symptoms x 2 days without COVID exposure. COVID and flu negative. Suggests x 2 days headache, sinus congestion and pressure, dry cough, nausea, vomiting, diarrhea and abdominal pain. 8+ watery BMs without any black or bloody stools. In the ED, blood work concerning for acute hepatitis with elevation of AST to 2782 and ALT 1893, alkaline phosphatase 119, total bili 1.8. Her lipase was unremarkable as well as CBC. TB 0.8 --> 0.4 AST 2782 --> 749 ALT 1893 --> 961 ALKP 119 --> 91 COVID negative Flu negative Hep A pending Hep B pending HCV neg ABD US: no gallstones, borderline ULN CBD Allergies Allergy/AdvReac Type Severity Reaction Status Date / Time Penicillins Allergy Intermediate HIVES Unverified 11/22/20 14:18 Iodinated Contrast Media Allergy Unknown Verified 11/22/20 17:05 Home Medications Medication Instructions Recorded Confirmed Type acetaminophen [Tylenol Extended 650 mg PO Q12H PRN 11/22/20 11/22/20 History Release] albuterol sulfate 2 puff INHALATION UD PRN 11/22/20 11/22/20 History aspirin [Aspirin Low Dose] 81 mg PO QAM 11/22/20 11/22/20 History clonazepam 1 mg PO QAM 11/22/20 11/22/20 History lisinopril 10 mg PO QAM 11/22/20 11/22/20 History multivitamin 1 tab PO QAM 11/22/20 11/22/20 History oxycodone-acetaminophen 1 tab PO TID PRN 11/22/20 11/22/20 History oxymetazoline [Nasal Whitmer 2 spray INTRANASAL Q12H PRN 11/22/20 11/22/20 History (oxymetazoline)] pantoprazole 40 mg PO QAM 11/22/20 11/22/20 History Patient History Medical History (Updated 11/22/20 @ 16:45 by Adelina Pichardo PA-C) Chronic back pain COPD (chronic obstructive pulmonary disease) ESTEFANI (generalized anxiety disorder) GERD (gastroesophageal reflux disease) History of hysteroscopy HTN (hypertension) Tobacco abuse Surgical History (Updated 11/22/20 @ 16:34 by Adelina Pichardo PA-C) History of appendectomy History of esophagogastroduodenoscopy (EGD) History of laminectomy [id number] Family History Father Coronary heart disease Hypertension Mother Stroke Social History Smoking Status: Current every day smoker Cigarettes Per Day: 10; Hx Alcohol Use: Yes Alcohol type: wine Alcohol Intake Frequency: 2-4 x/Month Hx Substance Use: No Preferred Language: Arabic Communication Ability: Effective [employer]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 Beliefs That Will Affect Care: None marital status: Single Current Living Situation: Alone Other Information That Helps Us Care for You: No Feels Safe at Home: Yes Safety Concerns: Feels Safe At This Time Assistive Devices: Glasses Review of Systems Constitutional: + fever, + chills, + body aches, + fatigue and + malaise Ear, Nose, Mouth, Throat: no ear pain Respiratory: + cough and + chest congestion; no dyspnea Cardiovascular: no chest pain Gastrointestinal: + abdominal pain, + cramping and + diarrhea/loose stools; no nausea, no blood in stools and no melena Physical Exam Constitutional: well developed; + not well nourished, no acute distress, not ill appearing and not intoxicated appearing Neck: trachea midline Respiratory: normal respiratory effort, lungs clear to auscultation Gastrointestinal (Abdomen): normal bowel sounds, soft, nontender, no hepatosplenomegaly Results & Data ([facility]) Vital Signs (Past 12 Hours) Vital Signs Temp Pulse Resp BP Pulse Ox 11/23/20 08:43 36.9 C 85 18 136/91 94 11/23/20 00:15 37.2 C 91 H 20 124/81 95 Laboratory Results 11/23/20 11/23/20 11/23/20 Range/Units 07:03 07:03 07:03 WBC 3.39 L (4.8-10.8) K/uL RBC 3.77 L (4.2-5.4) M/uL Hgb 12.2 (12.0-16.0) g/dL Hct 36.5 L (37-47) % MCV 96.8 (80-100) fL MCH 32.4 (25-34) pg MCHC 33.4 (32-36) g/dL RDW Std Deviation 46.9 H (36.4-46.3) fL RDW Coeff of Isac 13.3 (11.5-14.5) % Plt Count 139 (130-400) K/uL MPV 9.7 (7.4-10.4) fL Immature Gran % (Auto) 0.0 % Neut % (Auto) 54.9 % Lymph % (Auto) 27.1 % Bollinger % (Auto) 7.1 % Eos % (Auto) 10.3 % Baso % (Auto) 0.6 % Neut # (Auto) 1.86 (1.4-6.5) K/uL Lymph # (Auto) 0.92 L (1.2-3.4) K/uL Bollinger # (Auto) 0.24 (0.11-0.59) K/uL Eos # (Auto) 0.35 (0-0.5) K/uL Baso # (Auto) 0.02 (0-0.2) K/uL Immature Gran # (Auto) 0.00 (0.00-0.02) K/uL PT 11.5 (9.0-12.0) Seconds INR 1.1 (0.9-1.1) APTT (21.0-31.0) Seconds PTT Ratio Sodium 144 (136-145) mmol/L Potassium 3.3 L (3.5-5.1) mmol/L Chloride 111 H (98-107) mmol/L Carbon Dioxide 25 (21-32) mmol/L Anion Gap 9.0 (3-11) BUN 5 L D (7-18) mg/dl Creatinine 0.64 (0.6-1.2) mg/dl Est Cr Clr Drug Dosing 90.4 Est GFR ( Amer) 117.3 Est GFR (Non-Af Amer) 101.2 BUN/Creatinine Ratio 7.5 L (10-20) Glucose 84 (70-99) mg/dl Lactate (0.4-2.0) mmol/L Calcium 8.3 L (8.5-10.1) mg/dl Magnesium 1.7 L (1.8-2.4) mg/dl Ferritin (8-388) ng/ml Total Bilirubin 0.4 (0.2-1) mg/dl GGT AST 749 H (15-37) U/L ALT 961 H (12-78) U/L Alkaline Phosphatase 91 (45-117) U/L Total Creatine Kinase (26-192) U/L Troponin I (0-0.045) ng/ml Total Protein 5.7 L (6.4-8.2) gm/dl Albumin 2.9 L (3.4-5.0) gm/dl Globulin 2.8 (2.5-4.0) gm/dl Albumin/Globulin Ratio 1.0 (0.9-2) Ceruloplasmin Lipase (73-393) U/L Procalcitonin (0-0.5) ng/ml TSH (0.300-4.500) uIu/ml Free T4 (0.8-1.6) ng/dl Urine Color Urine Appearance (Clear) Urine pH (4.5-7.5) Ur Specific [place] (1.000-1.030) Urine Protein (Negative) Urine Glucose (UA) (Negative) Urine Ketones (Negative) Urine Blood (Negative) Urine Nitrite (Negative) Urine Bilirubin (Negative) Urine Urobilinogen (Negative) Ur Leukocyte Esterase (Negative) Urine WBC (Auto) (0-5) /hpf Urine RBC (Auto) (0-4) /hpf U Hyaline Cast (Auto) (0-5) /lpf U Epithel Cells (Auto) (0-5) /lpf Urine Bacteria (Auto) (Negative) Stl C. diff Tox B Gene (Neg) Urine Opiates Screen (Neg) Ur Methadone, Qual (Neg) Acetaminophen (10-30) ug/ml Urine Barbiturates (Neg) Ur Phencyclidine (PCP) (Neg) U Amphetamin/Meth Scrn (Neg) MDMA (Ecstasy) Screen (Neg) U Benzodiazepines Scrn (Neg) Ur Cocaine Metabolite (Neg) U Marijuana (THC) Screen (Neg) U Marijuana THC Carboxy Drug Screen Comment Ethyl Alcohol mg/dL (0-3) mg/dl Rheumatoid Factor KAROL Screen Anti-Smooth Muscle Ab COVID-19 Eval Order SARS-CoV-2 (PCR) (Negative) Hepatitis A IgM Ab Hep Bs Antigen (Neg) Hep B Core IgM Ab Hepatitis C Antibody (Neg) Monoscreen (Negative) Influenza Type A (PCR) (Neg) Influ A Molecular Assay (Negative) Influenza Type B (PCR) (Neg) Influ B Molecular Assay (Negative) RSV (RT-PCR) (Neg) SARS-CoV-2, RNA, NAAT (NEGATIVE) 11/22/20 11/22/20 11/22/20 Range/Units 20:20 20:20 20:20 WBC (4.8-10.8) K/uL RBC (4.2-5.4) M/uL Hgb (12.0-16.0) g/dL Hct (37-47) % MCV (80-100) fL MCH (25-34) pg MCHC (32-36) g/dL RDW Std Deviation (36.4-46.3) fL RDW Coeff of Isac (11.5-14.5) % Plt Count (130-400) K/uL MPV (7.4-10.4) fL Immature Gran % (Auto) % Neut % (Auto) % Lymph % (Auto) % Bollinger % (Auto) % Eos % (Auto) % Baso % (Auto) % Neut # (Auto) (1.4-6.5) K/uL Lymph # (Auto) (1.2-3.4) K/uL [place]linger # (Auto) (0.11-0.59) K/uL Eos # (Auto) (0-0.5) K/uL Baso # (Auto) (0-0.2) K/uL Immature Gran # (Auto) (0.00-0.02) K/uL PT (9.0-12.0) Seconds INR (0.9-1.1) APTT (21.0-31.0) Seconds PTT Ratio Sodium (136-145) mmol/L Potassium (3.5-5.1) mmol/L Chloride (98-107) mmol/L Carbon Dioxide (21-32) mmol/L Anion Gap (3-11) BUN (7-18) mg/dl Creatinine (0.6-1.2) mg/dl Est Cr Clr Drug Dosing Est GFR ( Amer) Est GFR (Non-Af Amer) BUN/Creatinine Ratio (10-20) Glucose (70-99) mg/dl Lactate (0.4-2.0) mmol/L Calcium (8.5-10.1) mg/dl Magnesium (1.8-2.4) mg/dl Ferritin (8-388) ng/ml Total Bilirubin (0.2-1) mg/dl GGT AST (15-37) U/L ALT (12-78) U/L Alkaline Phosphatase (45-117) U/L Total Creatine Kinase (26-192) U/L Troponin I (0-0.045) ng/ml Total Protein (6.4-8.2) gm/dl Albumin (3.4-5.0) gm/dl Globulin (2.5-4.0) gm/dl Albumin/Globulin Ratio (0.9-2) Ceruloplasmin Lipase (73-393) U/L Procalcitonin (0-0.5) ng/ml TSH (0.300-4.500) uIu/ml Free T4 (0.8-1.6) ng/dl Urine Color Dark Yellow Urine Appearance Clear (Clear) Urine pH 6.0 (4.5-7.5) Ur Specific [place] > 1.045 H (1.000-1.030) Urine Protein Trace H (Negative) Urine Glucose (UA) Negative (Negative) Urine Ketones Trace H (Negative) Urine Blood Trace H (Negative) Urine Nitrite Negative (Negative) Urine Bilirubin Negative (Negative) Urine Urobilinogen Negative (Negative) Ur Leukocyte Esterase Negative (Negative) Urine WBC (Auto) 1-5 (0-5) /hpf Urine RBC (Auto) 0-4 (0-4) /hpf U Hyaline Cast (Auto) 0 (0-5) /lpf U Epithel Cells (Auto) >30 H (0-5) /lpf Urine Bacteria (Auto) Negative (Negative) Stl C. diff Tox B Gene (Neg) Urine Opiates Screen Neg (Neg) Ur Methadone, Qual Neg (Neg) Acetaminophen (10-30) ug/ml Urine Barbiturates Neg (Neg) Ur Phencyclidine (PCP) Neg (Neg) U Amphetamin/Meth Scrn Neg (Neg) MDMA (Ecstasy) Screen Neg (Neg) U Benzodiazepines Scrn Neg (Neg) Ur Cocaine Metabolite Neg (Neg) U Marijuana (THC) Screen Pos H (Neg) U Marijuana THC Carboxy Pending Drug Screen Comment Pending Ethyl Alcohol mg/dL (0-3) mg/dl Rheumatoid Factor KAROL Screen Anti-Smooth Muscle Ab COVID-19 Eval Order SARS-CoV-2 (PCR) (Negative) Hepatitis A IgM Ab Hep Bs Antigen (Neg) Hep B Core IgM Ab Hepatitis C Antibody (Neg) Monoscreen (Negative) Influenza Type A (PCR) (Neg) Influ A Molecular Assay (Negative) Influenza Type B (PCR) (Neg) Influ B Molecular Assay (Negative) RSV (RT-PCR) (Neg) SARS-CoV-2, RNA, NAAT (NEGATIVE) 11/22/20 11/22/20 11/22/20 Range/Units 20:20 15:54 15:54 WBC (4.8-10.8) K/uL RBC (4.2-5.4) M/uL Hgb (12.0-16.0) g/dL Hct (37-47) % MCV (80-100) fL MCH (25-34) pg MCHC (32-36) g/dL RDW Std Deviation (36.4-46.3) fL RDW Coeff of Isac (11.5-14.5) % Plt Count (130-400) K/uL MPV (7.4-10.4) fL Immature Gran % (Auto) % Neut % (Auto) % Lymph % (Auto) % [place]linger % (Auto) % Eos % (Auto) % Baso % (Auto) % Neut # (Auto) (1.4-6.5) K/uL Lymph # (Auto) (1.2-3.4) K/uL [place]linger # (Auto) (0.11-0.59) K/uL Eos # (Auto) (0-0.5) K/uL Baso # (Auto) (0-0.2) K/uL Immature Gran # (Auto) (0.00-0.02) K/uL PT (9.0-12.0) Seconds INR (0.9-1.1) APTT (21.0-31.0) Seconds PTT Ratio Sodium (136-145) mmol/L Potassium (3.5-5.1) mmol/L Chloride (98-107) mmol/L Carbon Dioxide (21-32) mmol/L Anion Gap (3-11) BUN (7-18) mg/dl Creatinine (0.6-1.2) mg/dl Est Cr Clr Drug Dosing Est GFR ( Amer) Est GFR (Non-Af Amer) BUN/Creatinine Ratio (10-20) Glucose (70-99) mg/dl Lactate (0.4-2.0) mmol/L Calcium (8.5-10.1) mg/dl Magnesium (1.8-2.4) mg/dl Ferritin (8-388) ng/ml Total Bilirubin (0.2-1) mg/dl GGT AST (15-37) U/L ALT (12-78) U/L Alkaline Phosphatase (45-117) U/L Total Creatine Kinase (26-192) U/L Troponin I (0-0.045) ng/ml Total Protein (6.4-8.2) gm/dl Albumin (3.4-5.0) gm/dl Globulin (2.5-4.0) gm/dl Albumin/Globulin Ratio (0.9-2) Ceruloplasmin Lipase (73-393) U/L Procalcitonin (0-0.5) ng/ml TSH (0.300-4.500) uIu/ml Free T4 (0.8-1.6) ng/dl Urine Color Urine Appearance (Clear) Urine pH (4.5-7.5) Ur Specific [place] (1.000-1.030) Urine Protein (Negative) Urine Glucose (UA) (Negative) Urine Ketones (Negative) Urine Blood (Negative) Urine Nitrite (Negative) Urine Bilirubin (Negative) Urine Urobilinogen (Negative) Ur Leukocyte Esterase (Negative) Urine WBC (Auto) (0-5) /hpf Urine RBC (Auto) (0-4) /hpf U Hyaline Cast (Auto) (0-5) /lpf U Epithel Cells (Auto) (0-5) /lpf Urine Bacteria (Auto) (Negative) Stl C. diff Tox B Gene Negative Cdiff Gene (Neg) Urine Opiates Screen (Neg) Ur Methadone, Qual (Neg) Acetaminophen (10-30) ug/ml Urine Barbiturates (Neg) Ur Phencyclidine (PCP) (Neg) U Amphetamin/Meth Scrn (Neg) MDMA (Ecstasy) Screen (Neg) U Benzodiazepines Scrn (Neg) Ur Cocaine Metabolite (Neg) U Marijuana (THC) Screen (Neg) U Marijuana THC Carboxy Drug Screen Comment Ethyl Alcohol mg/dL (0-3) mg/dl Rheumatoid Factor KAROL Screen Anti-Smooth Muscle Ab COVID-19 Eval Order [facility] at [facility] SARS-CoV-2 (PCR) NEGATIVE (Negative) Hepatitis A IgM Ab Hep Bs Antigen (Neg) Hep B Core IgM Ab Hepatitis C Antibody (Neg) Monoscreen (Negative) Influenza Type A (PCR) Negative (Neg) Influ A Molecular Assay (Negative) Influenza Type B (PCR) Negative (Neg) Influ B Molecular Assay (Negative) RSV (RT-PCR) Negative (Neg) SARS-CoV-2, RNA, NAAT (NEGATIVE) 11/22/20 11/22/20 11/22/20 Range/Units 15:30 14:42 14:42 WBC (4.8-10.8) K/uL RBC (4.2-5.4) M/uL Hgb (12.0-16.0) g/dL Hct (37-47) % MCV (80-100) fL MCH (25-34) pg MCHC (32-36) g/dL RDW Std Deviation (36.4-46.3) fL RDW Coeff of Isac (11.5-14.5) % Plt Count (130-400) K/uL MPV (7.4-10.4) fL Immature Gran % (Auto) % Neut % (Auto) % Lymph % (Auto) % [place]linger % (Auto) % Eos % (Auto) % Baso % (Auto) % Neut # (Auto) (1.4-6.5) K/uL Lymph # (Auto) (1.2-3.4) K/uL [place]linger # (Auto) (0.11-0.59) K/uL Eos # (Auto) (0-0.5) K/uL Baso # (Auto) (0-0.2) K/uL Immature Gran # (Auto) (0.00-0.02) K/uL PT (9.0-12.0) Seconds INR (0.9-1.1) APTT (21.0-31.0) Seconds PTT Ratio Sodium (136-145) mmol/L Potassium (3.5-5.1) mmol/L Chloride (98-107) mmol/L Carbon Dioxide (21-32) mmol/L Anion Gap (3-11) BUN (7-18) mg/dl Creatinine (0.6-1.2) mg/dl Est Cr Clr Drug Dosing Est GFR ( Amer) Est GFR (Non-Af Amer) BUN/Creatinine Ratio (10-20) Glucose (70-99) mg/dl Lactate (0.4-2.0) mmol/L Calcium (8.5-10.1) mg/dl Magnesium (1.8-2.4) mg/dl Ferritin (8-388) ng/ml Total Bilirubin (0.2-1) mg/dl GGT AST (15-37) U/L ALT (12-78) U/L Alkaline Phosphatase (45-117) U/L Total Creatine Kinase (26-192) U/L Troponin I (0-0.045) ng/ml Total Protein (6.4-8.2) gm/dl Albumin (3.4-5.0) gm/dl Globulin (2.5-4.0) gm/dl Albumin/Globulin Ratio (0.9-2) Ceruloplasmin Pending Lipase (73-393) U/L Procalcitonin (0-0.5) ng/ml TSH (0.300-4.500) uIu/ml Free T4 (0.8-1.6) ng/dl Urine Color Urine Appearance (Clear) Urine pH (4.5-7.5) Ur Specific [place] (1.000-1.030) Urine Protein (Negative) Urine Glucose (UA) (Negative) Urine Ketones (Negative) Urine Blood (Negative) Urine Nitrite (Negative) Urine Bilirubin (Negative) Urine Urobilinogen (Negative) Ur Leukocyte Esterase (Negative) Urine WBC (Auto) (0-5) /hpf Urine RBC (Auto) (0-4) /hpf U Hyaline Cast (Auto) (0-5) /lpf U Epithel Cells (Auto) (0-5) /lpf Urine Bacteria (Auto) (Negative) Stl C. diff Tox B Gene (Neg) Urine Opiates Screen (Neg) Ur Methadone, Qual (Neg) Acetaminophen (10-30) ug/ml Urine Barbiturates (Neg) Ur Phencyclidine (PCP) (Neg) U Amphetamin/Meth Scrn (Neg) MDMA (Ecstasy) Screen (Neg) U Benzodiazepines Scrn (Neg) Ur Cocaine Metabolite (Neg) U Marijuana (THC) Screen (Neg) U Marijuana THC Carboxy Drug Screen Comment Ethyl Alcohol mg/dL < 3.0 (0-3) mg/dl Rheumatoid Factor Pending KAROL Screen Pending Anti-Smooth Muscle Ab Pending COVID-19 Eval Order SARS-CoV-2 (PCR) (Negative) Hepatitis A IgM Ab Pending Hep Bs Antigen (Neg) Hep B Core IgM Ab Pending Hepatitis C Antibody (Neg) Monoscreen (Negative) Influenza Type A (PCR) (Neg) Influ A Molecular Assay (Negative) Influenza Type B (PCR) (Neg) Influ B Molecular Assay (Negative) RSV (RT-PCR) (Neg) SARS-CoV-2, RNA, NAAT (NEGATIVE) 11/22/20 11/22/20 11/22/20 Range/Units 14:42 14:42 14:42 WBC (4.8-10.8) K/uL RBC (4.2-5.4) M/uL Hgb (12.0-16.0) g/dL Hct (37-47) % MCV (80-100) fL MCH (25-34) pg MCHC (32-36) g/dL RDW Std Deviation (36.4-46.3) fL RDW Coeff of Isac (11.5-14.5) % Plt Count (130-400) K/uL MPV (7.4-10.4) fL Immature Gran % (Auto) % Neut % (Auto) % Lymph % (Auto) % [place] % (Auto) % Eos % (Auto) % Baso % (Auto) % Neut # (Auto) (1.4-6.5) K/uL Lymph # (Auto) (1.2-3.4) K/uL [place] # (Auto) (0.11-0.59) K/uL Eos # (Auto) (0-0.5) K/uL Baso # (Auto) (0-0.2) K/uL Immature Gran # (Auto) (0.00-0.02) K/uL PT (9.0-12.0) Seconds INR (0.9-1.1) APTT (21.0-31.0) Seconds PTT Ratio Sodium (136-145) mmol/L Potassium (3.5-5.1) mmol/L Chloride (98-107) mmol/L Carbon Dioxide (21-32) mmol/L Anion Gap (3-11) BUN (7-18) mg/dl Creatinine (0.6-1.2) mg/dl Est Cr Clr Drug Dosing Est GFR ( Amer) Est GFR (Non-Af Amer) BUN/Creatinine Ratio (10-20) Glucose (70-99) mg/dl Lactate (0.4-2.0) mmol/L Calcium (8.5-10.1) mg/dl Magnesium (1.8-2.4) mg/dl Ferritin (8-388) ng/ml Total Bilirubin (0.2-1) mg/dl GGT AST (15-37) U/L ALT (12-78) U/L Alkaline Phosphatase (45-117) U/L Total Creatine Kinase (26-192) U/L Troponin I (0-0.045) ng/ml Total Protein (6.4-8.2) gm/dl Albumin (3.4-5.0) gm/dl Globulin (2.5-4.0) gm/dl Albumin/Globulin Ratio (0.9-2) Ceruloplasmin Lipase (73-393) U/L Procalcitonin (0-0.5) ng/ml TSH (0.300-4.500) uIu/ml Free T4 (0.8-1.6) ng/dl Urine Color Urine Appearance (Clear) Urine pH (4.5-7.5) Ur Specific [place] (1.000-1.030) Urine Protein (Negative) Urine Glucose (UA) (Negative) Urine Ketones (Negative) Urine Blood (Negative) Urine Nitrite (Negative) Urine Bilirubin (Negative) Urine Urobilinogen (Negative) Ur Leukocyte Esterase (Negative) Urine WBC (Auto) (0-5) /hpf Urine RBC (Auto) (0-4) /hpf U Hyaline Cast (Auto) (0-5) /lpf U Epithel Cells (Auto) (0-5) /lpf Urine Bacteria (Auto) (Negative) Stl C. diff Tox B Gene (Neg) Urine Opiates Screen (Neg) Ur Methadone, Qual (Neg) Acetaminophen 20 (10-30) ug/ml Urine Barbiturates (Neg) Ur Phencyclidine (PCP) (Neg) U Amphetamin/Meth Scrn (Neg) MDMA (Ecstasy) Screen (Neg) U Benzodiazepines Scrn (Neg) Ur Cocaine Metabolite (Neg) U Marijuana (THC) Screen (Neg) U Marijuana THC Carboxy Drug Screen Comment Ethyl Alcohol mg/dL (0-3) mg/dl Rheumatoid Factor KAROL Screen Anti-Smooth Muscle Ab COVID-19 Eval Order SARS-CoV-2 (PCR) (Negative) Hepatitis A IgM Ab Hep Bs Antigen Neg (Neg) Hep B Core IgM Ab Hepatitis C Antibody Neg (Neg) Monoscreen Negative (Negative) Influenza Type A (PCR) (Neg) Influ A Molecular Assay (Negative) Influenza Type B (PCR) (Neg) Influ B Molecular Assay (Negative) RSV (RT-PCR) (Neg) SARS-CoV-2, RNA, NAAT (NEGATIVE) 11/22/20 11/22/20 11/22/20 Range/Units 14:42 13:18 13:18 WBC (4.8-10.8) K/uL RBC (4.2-5.4) M/uL Hgb (12.0-16.0) g/dL Hct (37-47) % MCV (80-100) fL MCH (25-34) pg MCHC (32-36) g/dL RDW Std Deviation (36.4-46.3) fL RDW Coeff of Isac (11.5-14.5) % Plt Count (130-400) K/uL MPV (7.4-10.4) fL Immature Gran % (Auto) % Neut % (Auto) % Lymph % (Auto) % [place] % (Auto) % Eos % (Auto) % Baso % (Auto) % Neut # (Auto) (1.4-6.5) K/uL Lymph # (Auto) (1.2-3.4) K/uL [place] # (Auto) (0.11-0.59) K/uL Eos # (Auto) (0-0.5) K/uL Baso # (Auto) (0-0.2) K/uL Immature Gran # (Auto) (0.00-0.02) K/uL PT (9.0-12.0) Seconds INR (0.9-1.1) APTT (21.0-31.0) Seconds PTT Ratio Sodium (136-145) mmol/L Potassium (3.5-5.1) mmol/L Chloride (98-107) mmol/L Carbon Dioxide (21-32) mmol/L Anion Gap (3-11) BUN (7-18) mg/dl Creatinine (0.6-1.2) mg/dl Est Cr Clr Drug Dosing Est GFR ( Amer) Est GFR (Non-Af Amer) BUN/Creatinine Ratio (10-20) Glucose (70-99) mg/dl Lactate (0.4-2.0) mmol/L Calcium (8.5-10.1) mg/dl Magnesium (1.8-2.4) mg/dl Ferritin 1777.7 H (8-388) ng/ml Total Bilirubin (0.2-1) mg/dl GGT AST (15-37) U/L ALT (12-78) U/L Alkaline Phosphatase (45-117) U/L Total Creatine Kinase 91 (26-192) U/L Troponin I (0-0.045) ng/ml Total Protein (6.4-8.2) gm/dl Albumin (3.4-5.0) gm/dl Globulin (2.5-4.0) gm/dl Albumin/Globulin Ratio (0.9-2) Ceruloplasmin Lipase 199 (73-393) U/L Procalcitonin (0-0.5) ng/ml TSH 0.168 L (0.300-4.500) uIu/ml Free T4 0.97 (0.8-1.6) ng/dl Urine Color Urine Appearance (Clear) Urine pH (4.5-7.5) Ur Specific [place] (1.000-1.030) Urine Protein (Negative) Urine Glucose (UA) (Negative) Urine Ketones (Negative) Urine Blood (Negative) Urine Nitrite (Negative) Urine Bilirubin (Negative) Urine Urobilinogen (Negative) Ur Leukocyte Esterase (Negative) Urine WBC (Auto) (0-5) /hpf Urine RBC (Auto) (0-4) /hpf U Hyaline Cast (Auto) (0-5) /lpf U Epithel Cells (Auto) (0-5) /lpf Urine Bacteria (Auto) (Negative) Stl C. diff Tox B Gene (Neg) Urine Opiates Screen (Neg) Ur Methadone, Qual (Neg) Acetaminophen (10-30) ug/ml Urine Barbiturates (Neg) Ur Phencyclidine (PCP) (Neg) U Amphetamin/Meth Scrn (Neg) MDMA (Ecstasy) Screen (Neg) U Benzodiazepines Scrn (Neg) Ur Cocaine Metabolite (Neg) U Marijuana (THC) Screen (Neg) U Marijuana THC Carboxy Drug Screen Comment Ethyl Alcohol mg/dL (0-3) mg/dl Rheumatoid Factor KAROL Screen Anti-Smooth Muscle Ab COVID-19 Eval Order Covid19 [facility]Now [facility] SARS-CoV-2 (PCR) (Negative) Hepatitis A IgM Ab Hep Bs Antigen (Neg) Hep B Core IgM Ab Hepatitis C Antibody (Neg) Monoscreen (Negative) Influenza Type A (PCR) (Neg) Influ A Molecular Assay (Negative) Influenza Type B (PCR) (Neg) Influ B Molecular Assay (Negative) RSV (RT-PCR) (Neg) SARS-CoV-2, RNA, NAAT NEGATIVE (NEGATIVE) 11/22/20 11/22/20 11/22/20 Range/Units 13:06 13:00 13:00 WBC (4.8-10.8) K/uL RBC (4.2-5.4) M/uL Hgb (12.0-16.0) g/dL Hct (37-47) % MCV (80-100) fL MCH (25-34) pg MCHC (32-36) g/dL RDW Std Deviation (36.4-46.3) fL RDW Coeff of Isac (11.5-14.5) % Plt Count (130-400) K/uL MPV (7.4-10.4) fL Immature Gran % (Auto) % Neut % (Auto) % Lymph % (Auto) % [place] % (Auto) % Eos % (Auto) % Baso % (Auto) % Neut # (Auto) (1.4-6.5) K/uL Lymph # (Auto) (1.2-3.4) K/uL [place] # (Auto) (0.11-0.59) K/uL Eos # (Auto) (0-0.5) K/uL Baso # (Auto) (0-0.2) K/uL Immature Gran # (Auto) (0.00-0.02) K/uL PT (9.0-12.0) Seconds INR (0.9-1.1) APTT (21.0-31.0) Seconds PTT Ratio Sodium (136-145) mmol/L Potassium (3.5-5.1) mmol/L Chloride (98-107) mmol/L Carbon Dioxide (21-32) mmol/L Anion Gap (3-11) BUN (7-18) mg/dl Creatinine (0.6-1.2) mg/dl Est Cr Clr Drug Dosing Est GFR ( Amer) Est GFR (Non-Af Amer) BUN/Creatinine Ratio (10-20) Glucose (70-99) mg/dl Lactate (0.4-2.0) mmol/L Calcium (8.5-10.1) mg/dl Magnesium (1.8-2.4) mg/dl Ferritin (8-388) ng/ml Total Bilirubin (0.2-1) mg/dl GGT Pending AST (15-37) U/L ALT (12-78) U/L Alkaline Phosphatase (45-117) U/L Total Creatine Kinase (26-192) U/L Troponin I (0-0.045) ng/ml Total Protein (6.4-8.2) gm/dl Albumin (3.4-5.0) gm/dl Globulin (2.5-4.0) gm/dl Albumin/Globulin Ratio (0.9-2) Ceruloplasmin Lipase (73-393) U/L Procalcitonin 0.43 (0-0.5) ng/ml TSH (0.300-4.500) uIu/ml Free T4 (0.8-1.6) ng/dl Urine Color Urine Appearance (Clear) Urine pH (4.5-7.5) Ur Specific [place] (1.000-1.030) Urine Protein (Negative) Urine Glucose (UA) (Negative) Urine Ketones (Negative) Urine Blood (Negative) Urine Nitrite (Negative) Urine Bilirubin (Negative) Urine Urobilinogen (Negative) Ur Leukocyte Esterase (Negative) Urine WBC (Auto) (0-5) /hpf Urine RBC (Auto) (0-4) /hpf U Hyaline Cast (Auto) (0-5) /lpf U Epithel Cells (Auto) (0-5) /lpf Urine Bacteria (Auto) (Negative) Stl C. diff Tox B Gene (Neg) Urine Opiates Screen (Neg) Ur Methadone, Qual (Neg) Acetaminophen (10-30) ug/ml Urine Barbiturates (Neg) Ur Phencyclidine (PCP) (Neg) U Amphetamin/Meth Scrn (Neg) MDMA (Ecstasy) Screen (Neg) U Benzodiazepines Scrn (Neg) Ur Cocaine Metabolite (Neg) U Marijuana (THC) Screen (Neg) U Marijuana THC Carboxy Drug Screen Comment Ethyl Alcohol mg/dL (0-3) mg/dl Rheumatoid Factor KAROL Screen Anti-Smooth Muscle Ab COVID-19 Eval Order SARS-CoV-2 (PCR) (Negative) Hepatitis A IgM Ab Hep Bs Antigen (Neg) Hep B Core IgM Ab Hepatitis C Antibody (Neg) Monoscreen (Negative) Influenza Type A (PCR) (Neg) Influ A Molecular Assay Negative (Negative) Influenza Type B (PCR) (Neg) Influ B Molecular Assay Negative (Negative) RSV (RT-PCR) (Neg) SARS-CoV-2, RNA, NAAT (NEGATIVE) 11/22/20 11/22/20 11/22/20 Range/Units 13:00 13:00 13:00 WBC (4.8-10.8) K/uL RBC (4.2-5.4) M/uL Hgb (12.0-16.0) g/dL Hct (37-47) % MCV (80-100) fL MCH (25-34) pg MCHC (32-36) g/dL RDW Std Deviation (36.4-46.3) fL RDW Coeff of Isac (11.5-14.5) % Plt Count (130-400) K/uL MPV (7.4-10.4) fL Immature Gran % (Auto) % Neut % (Auto) % Lymph % (Auto) % [place] % (Auto) % Eos % (Auto) % Baso % (Auto) % Neut # (Auto) (1.4-6.5) K/uL Lymph # (Auto) (1.2-3.4) K/uL [place]linger # (Auto) (0.11-0.59) K/uL Eos # (Auto) (0-0.5) K/uL Baso # (Auto) (0-0.2) K/uL Immature Gran # (Auto) (0.00-0.02) K/uL PT 10.7 (9.0-12.0) Seconds INR 1.1 (0.9-1.1) APTT 22.4 (21.0-31.0) Seconds PTT Ratio 0.9 Sodium 143 (136-145) mmol/L Potassium 3.5 (3.5-5.1) mmol/L Chloride 109 H (98-107) mmol/L Carbon Dioxide 27 (21-32) mmol/L Anion Gap 7.0 (3-11) BUN 13 (7-18) mg/dl Creatinine 0.92 (0.6-1.2) mg/dl Est Cr Clr Drug Dosing Not Reportable Est GFR ( Amer) 81.8 Est GFR (Non-Af Amer) 70.6 BUN/Creatinine Ratio 14.3 (10-20) Glucose 112 H (70-99) mg/dl Lactate 1.5 (0.4-2.0) mmol/L Calcium 8.6 (8.5-10.1) mg/dl Magnesium 2.0 (1.8-2.4) mg/dl Ferritin (8-388) ng/ml Total Bilirubin 0.8 (0.2-1) mg/dl GGT AST 2782 H (15-37) U/L ALT 1893 H (12-78) U/L Alkaline Phosphatase 119 H (45-117) U/L Total Creatine Kinase (26-192) U/L Troponin I < 0.015 (0-0.045) ng/ml Total Protein 7.1 (6.4-8.2) gm/dl Albumin 3.8 (3.4-5.0) gm/dl Globulin 3.3 (2.5-4.0) gm/dl Albumin/Globulin Ratio 1.2 (0.9-2) Ceruloplasmin Lipase (73-393) U/L Procalcitonin (0-0.5) ng/ml TSH (0.300-4.500) uIu/ml Free T4 (0.8-1.6) ng/dl Urine Color Urine Appearance (Clear) Urine pH (4.5-7.5) Ur Specific [place] (1.000-1.030) Urine Protein (Negative) Urine Glucose (UA) (Negative) Urine Ketones (Negative) Urine Blood (Negative) Urine Nitrite (Negative) Urine Bilirubin (Negative) Urine Urobilinogen (Negative) Ur Leukocyte Esterase (Negative) Urine WBC (Auto) (0-5) /hpf Urine RBC (Auto) (0-4) /hpf U Hyaline Cast (Auto) (0-5) /lpf U Epithel Cells (Auto) (0-5) /lpf Urine Bacteria (Auto) (Negative) Stl C. diff Tox B Gene (Neg) Urine Opiates Screen (Neg) Ur Methadone, Qual (Neg) Acetaminophen (10-30) ug/ml Urine Barbiturates (Neg) Ur Phencyclidine (PCP) (Neg) U Amphetamin/Meth Scrn (Neg) MDMA (Ecstasy) Screen (Neg) U Benzodiazepines Scrn (Neg) Ur Cocaine Metabolite (Neg) U Marijuana (THC) Screen (Neg) U Marijuana THC Carboxy Drug Screen Comment Ethyl Alcohol mg/dL (0-3) mg/dl Rheumatoid Factor KAROL Screen Anti-Smooth Muscle Ab COVID-19 Eval Order SARS-CoV-2 (PCR) (Negative) Hepatitis A IgM Ab Hep Bs Antigen (Neg) Hep B Core IgM Ab Hepatitis C Antibody (Neg) Monoscreen (Negative) Influenza Type A (PCR) (Neg) Influ A Molecular Assay (Negative) Influenza Type B (PCR) (Neg) Influ B Molecular Assay (Negative) RSV (RT-PCR) (Neg) SARS-CoV-2, RNA, NAAT (NEGATIVE) 11/22/20 Range/Units 13:00 WBC 5.19 (4.8-10.8) K/uL RBC 4.44 (4.2-5.4) M/uL Hgb 14.8 (12.0-16.0) g/dL Hct 43.0 (37-47) % MCV 96.8 (80-100) fL MCH 33.3 (25-34) pg MCHC 34.4 (32-36) g/dL RDW Std Deviation 47.8 H (36.4-46.3) fL RDW Coeff of Isac 13.5 (11.5-14.5) % Plt Count 186 (130-400) K/uL MPV 10.1 (7.4-10.4) fL Immature Gran % (Auto) 0.2 % Neut % (Auto) 87.8 % Lymph % (Auto) 4.8 % Bollinger % (Auto) 3.5 % Eos % (Auto) 3.3 % Baso % (Auto) 0.4 % Neut # (Auto) 4.56 (1.4-6.5) K/uL Lymph # (Auto) 0.25 L (1.2-3.4) K/uL [place]linger # (Auto) 0.18 (0.11-0.59) K/uL Eos # (Auto) 0.17 (0-0.5) K/uL Baso # (Auto) 0.02 (0-0.2) K/uL Immature Gran # (Auto) 0.01 (0.00-0.02) K/uL PT (9.0-12.0) Seconds INR (0.9-1.1) APTT (21.0-31.0) Seconds PTT Ratio Sodium (136-145) mmol/L Potassium (3.5-5.1) mmol/L Chloride (98-107) mmol/L Carbon Dioxide (21-32) mmol/L Anion Gap (3-11) BUN (7-18) mg/dl Creatinine (0.6-1.2) mg/dl Est Cr Clr Drug Dosing Est GFR ( Amer) Est GFR (Non-Af Amer) BUN/Creatinine Ratio (10-20) Glucose (70-99) mg/dl Lactate (0.4-2.0) mmol/L Calcium (8.5-10.1) mg/dl Magnesium (1.8-2.4) mg/dl Ferritin (8-388) ng/ml Total Bilirubin (0.2-1) mg/dl GGT AST (15-37) U/L ALT (12-78) U/L Alkaline Phosphatase (45-117) U/L Total Creatine Kinase (26-192) U/L Troponin I (0-0.045) ng/ml Total Protein (6.4-8.2) gm/dl Albumin (3.4-5.0) gm/dl Globulin (2.5-4.0) gm/dl Albumin/Globulin Ratio (0.9-2) Ceruloplasmin Lipase (73-393) U/L Procalcitonin (0-0.5) ng/ml TSH (0.300-4.500) uIu/ml Free T4 (0.8-1.6) ng/dl Urine Color Urine Appearance (Clear) Urine pH (4.5-7.5) Ur Specific [place] (1.000-1.030) Urine Protein (Negative) Urine Glucose (UA) (Negative) Urine Ketones (Negative) Urine Blood (Negative) Urine Nitrite (Negative) Urine Bilirubin (Negative) Urine Urobilinogen (Negative) Ur Leukocyte Esterase (Negative) Urine WBC (Auto) (0-5) /hpf Urine RBC (Auto) (0-4) /hpf U Hyaline Cast (Auto) (0-5) /lpf U Epithel Cells (Auto) (0-5) /lpf Urine Bacteria (Auto) (Negative) Stl C. diff Tox B Gene (Neg) Urine Opiates Screen (Neg) Ur Methadone, Qual (Neg) Acetaminophen (10-30) ug/ml Urine Barbiturates (Neg) Ur Phencyclidine (PCP) (Neg) U Amphetamin/Meth Scrn (Neg) MDMA (Ecstasy) Screen (Neg) U Benzodiazepines Scrn (Neg) Ur Cocaine Metabolite (Neg) U Marijuana (THC) Screen (Neg) U Marijuana THC Carboxy Drug Screen Comment Ethyl Alcohol mg/dL (0-3) mg/dl Rheumatoid Factor KAROL Screen Anti-Smooth Muscle Ab COVID-19 Eval Order SARS-CoV-2 (PCR) (Negative) Hepatitis A IgM Ab Hep Bs Antigen (Neg) Hep B Core IgM Ab Hepatitis C Antibody (Neg) Monoscreen (Negative) Influenza Type A (PCR) (Neg) Influ A Molecular Assay (Negative) Influenza Type B (PCR) (Neg) Influ B Molecular Assay (Negative) RSV (RT-PCR) (Neg) SARS-CoV-2, RNA, NAAT (NEGATIVE)
[2020-11-23] MEDS: PANTOprazole 40 MG in SYRINGE 0 ML IV SCH (10:36)
--- NOTE | 2020-11-23 15:48 | Hospitalist Progress Note ---
Date of Service November 23, 2020 Assessment & Plan (1) Acute hepatitis: (2) Abdominal pain, vomiting, and diarrhea: (3) Flu-like symptoms: (4) Tachycardia: Patient is a 55 yr female with H/O COPD, tobacco abuse, HTN, ESTEFANI, GERD, chronic back pain with history of laminectomy who presents to ED secondary to flulike symptoms x2 days. Flu like symptoms-nausea, vomiting, diarrhea, abd pain Acute hepatitis Can not rule out Infectious etiology Elevated Ferritin Admits to using marijuana -CT ABD:Borderline dilatation of the common bile duct. No intrahepatic biliary ductal dilatation. Normal liver morphology. No hepatic lesions. Mild gallbladder distention without adjacent infiltration. No findings to strongly suggest acute cholecystitis. Apparent gastric fold thickening. This is likely due to underdistention. Gastritis could appear similar. No bowel obstruction. No bowel wall thickening. -COVID Screen:pending -Stool Culture:Negative -Toxicology Screen: Positive for marijuana -Serological work-up including acute hepatitis panel, CMV, EBV, HSV, KAROL, AMA, ASMA, ceruloplasmin pending -MRCP pending -Appreciate GI input -Advance diet as tolerated Received IV fluid Avoid hepatotoxic agents Monitor LFTs Received empiric Rocephin, Flagyl Abdominal pain improved Acute bronchitis CXR;No acute cardiopulmonary findings. Covid screen negative Serum empiric antibiotics as above (5) COPD (chronic obstructive pulmonary disease): No signs of Exacerbation continue prn albuterol (6) HTN (hypertension): Resume lisinopril (7) GERD (gastroesophageal reflux disease): Continue PPI (8) Tobacco abuse: Encourage smoking cessation Declines nicotine patch (9) DVT prophylaxis: SCD/TEDS for now CODE STATUS Full code Disposition Expected discharge home when medically stable. Admission and Anticipated Discharge Date Admission Date: November 22, 2020 Subjective Patient is seen and examined at bedside States feeling better today Minimal non expectorant cough Abdominal pain improved Still has diarrhea Denies chest pain, shortness of breath, dizziness MRCP pending Offers no other complaints Review of Systems Review of Systems: All systems reviewed & are unremarkable except as noted in HPI & below Physical Exam Physical Exam: Physical Exam: Vitals signs as noted above General Appearance:Moderately built and nourished, no apparent distress Head: normocephalic, Atraumatic Eyes: normal inspection, EOMI Neck: supple, Trachea midline Respiratory/Chest: Decreased breath sounds, CTA Cardiovascular: S1, S2, No murmur Abdomen/GI:Soft, Non tender, Bowel sounds present Extremities/Musculoskelatal:normal inspection, no edema Neurologic/Psych:AAOX3, grossly no focal neurological deficits Skin: normal color, warm Results & Data Results & Data ([facility]) Vital Signs (Past 12 Hours) Vital Signs Temp Pulse Resp BP Pulse Ox 11/23/20 08:43 36.9 C 85 18 136/91 94 Laboratory Results Short CBC 11/23/20 Range/Units 07:03 WBC 3.39 L (4.8-10.8) K/uL Hgb 12.2 (12.0-16.0) g/dL Hct 36.5 L (37-47) % Plt Count 139 (130-400) K/uL BMP 11/23/20 07:03 Sodium 144 Potassium 3.3 L Chloride 111 H Carbon Dioxide 25 BUN 5 L D Creatinine 0.64 Glucose 84 Calcium 8.3 L Cardiac Enzymes 11/22/20 Range/Units 14:42 Total Creatine Kinase 91 (26-192) U/L Liver Function 11/23/20 Range/Units 07:03 Total Bilirubin 0.4 (0.2-1) mg/dl AST 749 H (15-37) U/L ALT 961 H (12-78) U/L Alkaline Phosphatase 91 (45-117) U/L Albumin 2.9 L (3.4-5.0) gm/dl Urine 11/22/20 Range/Units 20:20 Urine Color Dark Yellow Urine Appearance Clear (Clear) Urine pH 6.0 (4.5-7.5) Ur Specific [place] > 1.045 H (1.000-1.030) Urine Protein Trace H (Negative) Urine Glucose (UA) Negative (Negative)
--- NOTE | 2020-11-23 15:54 | Communication Note ---
Date of Service: November 23, 2020 Patient informed RN that she wanted to be discharged and planning to leave AMA. " I feel good and I want to leave. I can get test done as outpatient" Discussed with the patient about need for further work up, pending tests and about her condition & possible complications if untreated. Patient understands the risks/complications/consequences and persists on leaving AGAINST MEDICAL ADVICE. 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
--- NOTE | 2020-11-23 16:56 | Discharge Summary ---
Date of Service November 23, 2020 Admission HPI Per Admitting Provider This is a 55-year-old female who has significant past medical history of COPD, tobacco abuse, HTN, ESTEFANI, GERD, chronic back pain with history of laminectomy who presents to ED secondary to flulike symptoms x2 days. She states starting yesterday she developed headache, sinus congestion and pressure, dry cough, nausea, vomiting, diarrhea and abdominal pain. She lives at home alone and no known sick contacts. No known Covid exposure. She admits to having approximately 7-8 bowel movements today, "they are just like water." She overall feels ill. Pain in abdomen is generalized, but worse on left lower quadrant. It is constant, described as a dull ache, and made worse with movement. She denies any hematemesis, melena or hematochezia. She further denies any documented fever, lightheadedness, dizziness, syncope, chest pain, shortness of breath at rest, hemoptysis, dysuria, increased urgency or frequency with urination. She does admit to being overall short of breath but attributes that her COPD and does not feel like this is unchanged. She continues to use tobacco but over the past couple days has been unable to to ill feeling. In ED patient was initially tachycardic. This improved after 1 L of IV fluid. She was then started on additional liter. Lab work notable for an acute hepatitis with elevation of AST to 2782 and ALT 1893, alkaline phosphatase 119, total bili 1.8. Her lipase was unremarkable as well as CBC. Her procalcitonin minimally elevated at 0.43. Initially she received 1 g APAP, IV Toradol and 2 g IV cefepime. Principal Diagnosis Flu like symptoms-nausea, vomiting, diarrhea, abd pain Acute hepatitis Elevated Ferritin Discharge Data Allergies Allergy/AdvReac Type Severity Reaction Status Date / Time Penicillins Allergy Intermediate HIVES Unverified 11/22/20 14:18 Iodinated Contrast Media Allergy Unknown Verified 11/22/20 17:05 Consultations 11/22/20 15:34 ED Decision to Admit Stat 11/22/20 15:48 Consult Gastroenterology Routine Procedures Performed CT ABD:Borderline dilatation of the common bile duct. No intrahepatic biliary ductal dilatation. Normal liver morphology. No hepatic lesions. Mild gallbladder distention without adjacent infiltration. No findings to strongly suggest acute cholecystitis. Apparent gastric fold thickening. This is likely due to underdistention. Gastritis could appear similar. No bowel obstruction. No bowel wall thickening. CXR: No acute cardiopulmonary findings. Ordered Studies 11/22/20 14:21 CT abd pelvis IV con only Stat 11/22/20 16:26 US abdomen limited Urgent 11/23/20 10:14 MR MRCP Routine Hospital Course (1) Acute hepatitis: (2) Abdominal pain, vomiting, and diarrhea: (3) Flu-like symptoms: (4) Tachycardia: Patient is a 55 yr female with H/O COPD, tobacco abuse, HTN, ESTEFANI, GERD, chronic back pain with history of laminectomy who presents to ED secondary to flulike symptoms x2 days. Flu like symptoms-nausea, vomiting, diarrhea, abd pain Acute hepatitis Can not rule out Infectious etiology Elevated Ferritin Admits to using marijuana -CT ABD:Borderline dilatation of the common bile duct. No intrahepatic biliary ductal dilatation. Normal liver morphology. No hepatic lesions. Mild gallbladder distention without adjacent infiltration. No findings to strongly suggest acute cholecystitis. Apparent gastric fold thickening. This is likely due to underdistention. Gastritis could appear similar. No bowel obstruction. No bowel wall thickening. -COVID Screen:pending -Stool Culture:Negative -Toxicology Screen: Positive for marijuana -Serological work-up including acute hepatitis panel, CMV, EBV, HSV, KAROL, AMA, ASMA, ceruloplasmin pending -MRCP pending -Appreciate GI input -Advance diet as tolerated Received IV fluid Avoid hepatotoxic agents Monitor LFTs Received empiric Rocephin, Flagyl Abdominal pain improved Acute bronchitis CXR;No acute cardiopulmonary findings. Covid screen negative Serum empiric antibiotics as above (5) COPD (chronic obstructive pulmonary disease): No signs of Exacerbation continue prn albuterol (6) HTN (hypertension): Resume lisinopril (7) GERD (gastroesophageal reflux disease): Continue PPI (8) Tobacco abuse: Encourage smoking cessation Declines nicotine patch (9) DVT prophylaxis: SCD/TEDS for now CODE STATUS Full code Disposition Expected discharge home when medically stable. Total Time Total Time Spent Total Time Spent (In Minutes): 36 minutes Total Time Includes: Examination of the Patient, Discharge Planning, Medication Reconciliation, Communication With Other Providers and Other Discharge Plan Discharge Items Patient Disposition: Against Medical Advice Reason For Visit: ACUTE HEPATITIS Condition on Discharge: Fair Activity: Per Instructions section Non-emergency contact: Primary Care Provider and Cyber Threat Analyst Follow-up/Referrals: PCP,NO [Primary Care Provider] - Pending Studies at Discharge: Yes Stand-Alone Forms: My [employer], Smoking Cessation Skilled Items Patient informed of condition?: Yes DNR: No Discharge Level of Care: Other Medications and DC Order Prescriptions: Continued multivitamin Tablet 1 tab PO QAM RF: 0 clonazepam 1 mg tablet 1 mg PO QAM RF: 0 aspirin [Aspirin Low Dose] 81 mg Tablet,Delayed Release (Dr/Ec) 81 mg PO QAM RF: 0 pantoprazole 40 mg tablet,delayed release (DR/EC) 40 mg PO QAM RF: 0 lisinopril 10 mg tablet 10 mg PO QAM RF: 0 albuterol sulfate 90 mcg/actuation HFA aerosol inhaler 2 puff INHALATION UD PRN (Reason: Shortness Of Breath Or Wheezing) RF: 0 oxymetazoline [Nasal Manteno (oxymetazoline)] 0.05 % Manteno,Non-Aerosol 2 spray INTRANASAL Q12H PRN (Reason: Allergy Symptoms) RF: 0 Discontinued acetaminophen [Tylenol Extended Release] 650 mg Tablet Extended Release 650 mg PO Q12H PRN (Reason: Pain) RF: 0 oxycodone-acetaminophen 5-325 mg tablet 1 tab PO TID PRN (Reason: Pain) RF: 0 Discharge Orders: Left Against Medical Advice (Routine); Ordered 11/23/20 Ordered By: Wang Recinos Admission Data Admit Date/Time: 11/22/20 15:48 Attending Provider: Wang Recinos Admit Provider: Wang Recinos Primary Care Provider: PCP,NO Other Providers: Jae Snyder ; Wang Recinos Other Interventions: Discharge Summary Assessment (RN) Last Done: 11/23/20 16:31
[2020-11-24 05:21] LABS: Hepatitis A Antibody IgM NON-REACTIVE (NON-REACTIVE); Hepatitis B Core Antibody IgM NON-REACTIVE (NON-REACTIVE)
[2020-11-25 00:03] LABS: Marijuana Quant, GCMS Urine 48 ng/mL (<5)
[2020-11-25 13:49] LABS: Anti Nuclear Antibody Screen POSITIVE (NEGATIVE); Ceruloplasmin 27 mg/dL (18-53); Rheumatoid Factor <14 IU/mL (<14); Smooth Muscle Antibody NEGATIVE (NEGATIVE)
[2020-11-26 13:03] LABS: ANA Pattern Cytoplasmic
[2020-11-27 14:55] LABS: Anti Mitochondrial Antibody POSITIVE (NEGATIVE); CMV IgM Antibody <30.00 AU/mL; Herpes Simplex Ab IgG-1 7.07 index; Herpes Simplex Ab IgG-2 3.89 index
== END 2020-11-23 16:48 | disposition left against medical advice (07) ==
LOC: ED 12:11 → 3N 15:48 → 3E 18:37